=== PATIENT | male | born 1965 | race African-American/Black ===

== ENCOUNTER 2016-11-25 09:27 | Emergency (ER) | payer OTHER, MEDICARE ==
[~2016-11-25] VITALS: Ht 162.6 cm; Wt 52.6 kg
--- NOTE | 2016-11-25 09:54 | PHYS DOC ---
General Chief Complaint: BACK PAIN OR INJURY Stated Complaint: BACK PAIN Time Seen by MD: 09:52 Source: patient Exam Limitations: no limitations Problems: History of Present Illness Initial Comments Patient is a 51-year-old male who comes to the ED complaining of low back pain. Patient states that for the past week he's had worsening low back pain. Pain is across the lumbosacral junction worse with movement and improved with rest. Described as sharp and severe with movement and improved with rest. No leg weakness no saddle anesthesia and no bowel or bladder symptoms. He thinks he may have pulled something although he cannot recall any specific event. Patient has history of osteoporosis however denies any possibility of trauma he denies midline or bony back pain. Timing/Duration: 1 week, getting worse Severity: severe Modifying Factors: worse with movement, improves with rest Associated Symptoms: other Allergies: Coded Allergies: No Known Drug Allergies (Unverified , 11/25/16) Past Medical History Medical History: other (Crohn's, hypertension) Surgical History: other (multiple bowel resections) Social History Smoker: non-smoker Alcohol: none Drugs: other (reported 25 year history of crack cocaine addiction claims 5 years sobriety) Review of Systems Constitutional: denies chills, denies fever Respiratory: denies cough, denies shortness of breath Cardiovascular: denies chest pain, denies palpitations Gastrointestinal: denies nausea, denies vomiting Genitourinary: denies frequency, denies hematuria Musculoskeletal: see HPI Psychiatric/Neurological: see HPI Physical Exam General Appearance: no apparent distress, thin Ear, Nose, Throat: hearing grossly normal, normal ENT inspection Neck: non-tender, supple Respiratory: chest non-tender, no respiratory distress Cardiovascular: normal peripheral pulses, no edema Back: no CVA tenderness, no vertebral tenderness, decreased range of motion, muscle spasm (lumbar paraspinals) Extremities: normal range of motion, no pedal edema (mild posterior left calf TTP no swelling or palpable mass, pt "I pulled a calf muscle") 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 Negative straight leg raise bilaterally) Skin: normal color, warm/dry Departure Time of Disposition: :57 Disposition: 01 HOME, SELF-CARE Diagnosis: low back pain Condition: STABLE Patient Instructions: Low Back Strain with Rehab-SportsMed Additional Instructions: Rest, no strenuous activity. Heating pad to affected area 15-20 minutes 6 times daily followed by gentle stretching. Take care not to fall asleep on the device which would cause a burn. [id number] ibuprofen for baseline discomfort. Prescription: [place] 5 mg quantity 10 take with food for severe pain pain. Follow-up with your doctor in 1-2 days recheck. Return to ED with new or changing symptoms. EVONNE REYNOLDS DO Nov 25, 2016 09:54
[2016-11-25] MEDS ORDERED: HYDR-971 PO (09:56)
[2016-11-25 10:28] VITALS: BP 139/87
[2016-11-25] MEDS ORDERED: fentaNYL PF 100 MCG/2 ML VIAL IM ONE (10:30)
== END 2016-11-25 10:40 | disposition home or self-care (01) ==
LOC: ER 09:27
DX: M54.5 Low back pain (principal); I10 Essential (primary) hypertension; K50.90 Crohn's disease, unspecified, without complications
CPT/HCPCS: 96372; 99283; J3010

== ENCOUNTER 2016-12-02 09:59 | Emergency (ER) | payer MEDICARE, OTHER ==
[~2016-12-02] VITALS: Ht 170.2 cm; Wt 52.6 kg
[~2016-12-02 09:59] MED LIST: HYDR-971 PO
[2016-12-02] MEDS ORDERED: AZAT50TA PO (10:23)
[2016-12-02] MEDS ORDERED: CALC-30 PO (10:25)
[2016-12-02] MEDS ORDERED: RANI150C PO (10:25)
[2016-12-02] MEDS ORDERED: TAMS0.4C2 PO (10:25)
[2016-12-02] MEDS ORDERED: CHOL500021 PO (10:25)
[2016-12-02 10:34] VITALS: BP 153/101
--- NOTE | 2016-12-02 10:36 | PHYS DOC ---
Past History Past Medical History: Hypertension, IBS Past Surgical History: No Surgical History Alcohol Use: None Drug Use: Marijuana Adult General Chief Complaint Chief Complaint: GROIN PAIN HPI HPI Patient is a 51-year-old male with history of Crohn's disease and DVT/PE, has a filter, comes in with a complaint of right groin pain for about 4 days. It has not kept him up at night. He has not noticed a bulge or swelling. No exacerbating or alleviating factors. It just hurts. He had some pain pills on hands that he had been prescribed for back pain, they do help, but he is out of them. He has noted some leg swelling. He previously was on Coumadin for DVT history that he stated it made his blood to sense and they stopped it. He now has a filter. History of Crohn's disease. He gets some type of infusion at [facility] every 4 weeks. He was seen here last week for back pain which is now better. His previous exacerbation of back pain had been in March. He just gets that from time to time. He doesn't believe this groin pain is related to that. Review of Systems Review of Systems Constitutional: Denies fever or chills [] Respiratory: Denies shortness of breath or any pleuritic chest pain or difficulty breathing Cardiovascular: Denies chest pain GI: Denies abdominal pain Musculoskeletal: Denies back pain or joint pain [] Integument: Denies rash or skin lesions [] Allergies Allergies Allergies Coded Allergies Type Severity Reaction Last Updated Verified No Known Drug Allergies 11/25/16 No Physical Exam Physical Exam Constitutional: Well developed, well nourished, somewhat cachectic and appears chronically ill, alert, mentating normally HENT: Normocephalic, atraumatic, bilateral external ears normal, nose normal. [ ] Eyes: conjunctiva normal, no discharge. [] Neck: Normal range of motion, no stridor. [] Cardiovascular:Heart rate regular rhythm, no murmur [] Abdomen: Bowel sounds normal, soft, nondistended, no tenderness, no masses, no pulsatile masses. Healed midline scar. Tenderness to palpation in the right inguinal area. No swelling, no lymphadenopathy palpable, no masses. Hernia not palpable. I had the patient strain and I do not see or feel a hernia. unremarkable. Skin: Warm, dry, no erythema, no rash. [] Extremities: No tenderness, no cyanosis, no clubbing, ROM intact. Mild amount of swelling of the right upper and lower leg with trace edema. No evidence of cellulitis. Mild amount of swelling of the left upper and lower leg as well. Neurologic: Alert and oriented X 3, normal motor function, normal sensory function, no focal deficits noted. [] EKG EKG [] Radiology/Procedures Radiology/Procedures Vascular Doppler of the right lower extremity read by the radiologist. Deep vein thrombosis present, common femoral vein appears chronic, there may be acute on chronic or subacute component. [] Course & Med Decision Making Course & Med Decision Making Pertinent Labs and Imaging studies reviewed. (See chart for details) 51-year-old male with a history of DVT and PE who is not taking anticoagulation therapy, presents with right groin pain for 4 days. On exam I do not see a obvious cause of the pain. With his history we will check an ultrasound of the leg veins. Vascular Doppler is positive for DVT of the right leg, some areas appear chronic , there may be some acute component. I do believe this is probably responsible for the patient's complaint of pain. I discussed the case with Dr. Horton. Since the patient does have a inferior vena cava filter, I believe the patient can be treated as an outpatient with initiation of anticoagulation. She agrees with that. Since he had a bad experience with Coumadin, we will start Xarelto. I discussed this with the patient. He is agreeable. I started him on a 30 day started pack and discussed the importance of getting follow-up before 30 days is finished with a primary care doctor. He was given referrals to local primary care doctors and also he states that his GI doctor at had planned to get him in with a primary care there. Either there is fine. We discussed return precautions especially any signs or symptoms of pulmonary embolism. Patient is stable for discharge. [] Dragon Disclaimer Dragon Disclaimer This chart was dictated in whole or in part using Voice Recognition software in a busy, high-work load, and often noisy Emergency Department environment. It may contain unintended and wholly unrecognized errors or omissions. Departure Departure: Impression: Primary Impression: Deep vein thrombosis Disposition: HOME, SELF-CARE Condition: STABLE Referrals: PCP,NO (PCP) NARCISO CARBONE MD, KATHLEEN R MD Patient Instructions: Deep Vein Thrombosis Additional Instructions: As we discussed, you do have a blood clot in the vein of your right leg. Because you have a filter, we will start you on blood thinning medicine as an outpatient. You will need to follow-up with a doctor who will help manage your anticoagulation. You can call your GI doctor and let them know what is going on and they may want to refer you to a doctor at to help with that. I also gave you names and phone numbers of primary care doctors here at our hospital. Scripts [xarelto starter pack] No Conflict Check for DVT/PE for 30 Days Prov: JUAN LUIS BUENROSTRO MD 12/02/16 JUAN LUIS BUENROSTRO MD Dec 02, 2016 10:36
[2016-12-02] MEDS ORDERED: XARELTO STARTER PACK (11:52)
--- NOTE | 2016-12-02 13:44 | RAD ---
Ultrasound Venous Doppler of the lower extremities Indication: 51-year-old male with right groin pain. History of DVT. Technique: Grayscale, color Doppler and spectral waveform ultrasound images of the right lower extremity veins. Comparison: None Findings: Common femoral vein: Mixed echogenicity filling defect is seen within the CFV. No blood flow is demonstrated on color Doppler images. Superficial femoral vein/deep femoral vein: There is mixed echogenicity filling defect within the veins. Minimal flow is seen within this veins. Proximal Superficial femoral vein: The vein is compressible with eccentric thrombus within proximal femoral vein with minimal flow. Distal superficial femoral vein: The vein is mildly compressible with minimal flow. Popliteal vein: The vein is minimally compressible with minimal flow. Impression: Extensive filling defect within the interrogated right lower extremity veins compatible with DVT. The filling defect within the common femoral vein appears chronic. Rest of the veins are minimally compressible which may suggest subacute DVT. However, acute on chronic DVT not ruled out. Direct comparison with outside imaging is recommended. MTDD
== END 2016-12-02 12:40 | disposition home or self-care (01) ==
LOC: ER 09:59
DX: I82.401 Acute embolism and thrombosis of unspecified deep veins of right lower extremity (principal); K50.90 Crohn's disease, unspecified, without complications; K58.9 Irritable bowel syndrome, unspecified; I10 Essential (primary) hypertension; Z79.01 Long term (current) use of anticoagulants; Z86.718 Personal history of other venous thrombosis and embolism
CPT/HCPCS: 93971; 99284-25

== ENCOUNTER 2017-12-01 12:41 | Inpatient (IN) | payer OTHER ==
[~2017-12-01] VITALS: Ht 170.2 cm; Wt 60.0 kg
[~2017-12-01 12:41] MED LIST changes: +AZAT50TA PO; +CALC-30 PO; +CHOL500021 PO; +RANI150C PO; +TAMS0.4C2 PO; +XARELTO STARTER PACK
--- NOTE | 2017-12-01 13:40 | PHYS DOC ---
Past History Past Medical History: Hypertension, IBS, Other Past Surgical History: No Surgical History Alcohol Use: None Drug Use: Marijuana Adult General Chief Complaint Chief Complaint: LOWER EXT PAIN HPI HPI Patient is a 52-year-old male who presents with complaining of right lower extremity pain and swelling for 2 weeks as a gradual onset of some problem. Patient rated his pain moderate and denies shortness of breath, fever and chills , injury. Patient had history of DVT in right lower extremity but currently doesn't take anticoagulation medication. Review of Systems Review of Systems Constitutional: Denies fever or chills [] Eyes: Denies change in visual acuity, redness, or eye pain [] HENT: Denies nasal congestion or sore throat [] Respiratory: Denies cough or shortness of breath [] Cardiovascular: No additional information not addressed in HPI [] GI: Denies abdominal pain, nausea, vomiting, bloody stools or diarrhea [] : Denies dysuria or hematuria [] Musculoskeletal: Denies back pain or joint pain , reports extremity pain and edema[] Integument: Denies rash or skin lesions [] Neurologic: Denies headache, focal weakness or sensory changes [] Endocrine: Denies polyuria or polydipsia [] All other systems were reviewed and found to be within normal limits, except as documented in this note. Allergies Allergies Allergies Coded Allergies Type Severity Reaction Last Updated Verified No Known Drug Allergies 11/25/16 No Physical Exam Physical Exam Constitutional: Mild distress, non-toxic appearance, ill looking,pale. [] HENT: Normocephalic, atraumatic Eyes: PERRLA, EOMI, conjunctiva normal, no discharge. [] Neck: Normal range of motion, no tenderness, supple, no stridor. [] Cardiovascular:Heart rate regular rhythm, no murmur [] Lungs & Thorax: Bilateral breath sounds clear to auscultation [] Abdomen: Bowel sounds normal, soft, no tenderness, no masses, no pulsatile masses. [] Skin: Warm, dry, no erythema, no rash. [] Back: No tenderness, no CVA tenderness. [] Extremities: Right lower extremity with 2+ edema extending from toes to groin with erythema and tenderness without neurovascular deficit Neurologic: Alert and oriented X 3, normal motor function, normal sensory function, no focal deficits noted. [] Psychologic: Affect normal, judgement normal, mood normal. [] Current Patient Data Vital Signs Vital Signs Date Time Temp Pulse Resp B/P (MAP) Pulse Ox O2 Delivery O2 Flow Rate FiO2 12/01/17 12:50 97.6 66 18 100 Room Air EKG EKG [] Radiology/Procedures Radiology/Procedures [][address] [address] IMAGING REPORT Signed PATIENT: CHRISTIAN LOPEZ ACCOUNT: [id number] : 1965 LOCATION: ER AGE: 52 SEX: M EXAM STATUS: REG ER ORD. PHYSICIAN: PANCHITO SANDOVAL MD REASON: pain for 2 weeks, history of DVT PROCEDURE: VENOUS LOWER EXTREMITY RIGHT EXAM: Right lower extremity venous Doppler sonogram. HISTORY: DVT. TECHNIQUE: Galo scale and color Doppler sonographic evaluation of the right lower extremity veins with spectral waveform analysis was performed. FINDINGS: There is nonocclusive thrombus within the common femoral and superficial femoral veins and occlusive thrombus within the popliteal, proximal posterior tibial and greater saphenous veins. IMPRESSION: Right lower extremity deep and superficial venous thrombosis, described above. These findings were communicated to Dr. Sandoval by the composing room machinist apprentice at 1330 hours on 12/01/2017. Electronically signed by: Irena Mak MD (12/01/2017 1:34 PM) [place] [id number] DICTATED AND SIGNED BY: IRENA MAK MD DATE: 12/01/17 2090 CC: MIGUEL AVERY DO; PANCHITO SANDOVAL MD ~ Course & Med Decision Making Course & Med Decision Making Pertinent Labs and Imaging studies reviewed. (See chart for details) Evaluation of patient in ER showed 52-year-old female patient with history of right lower extremity DVT and complaining of right lower extremity pain and edema. Weeks. Patient had positive superficial and deep vein thromboses of right lower extremity with pancytopenia and hypoalbuminemia. Patient also had blood pressure of 200 at arrival to ER that gradually decrease to 166/64 after Clonidine pain medication. Patient agreed with hospitalization and Dr. Freeman accepted admission at 1335. Dragon Disclaimer Dragon Disclaimer This electronic medical record was generated, in whole or in part, using a voice recognition dictation system. Departure Departure: Impression: Primary Impression: Right leg DVT Additional Impressions: Hypertensive urgency History of Crohn's disease Pancytopenia Renal insufficiency Elevated liver function tests Hypoalbuminemia Hypocalcemia Superficial vein thrombosis Disposition: ADMITTED INPATIENT (at 1335) Admitting Physician: Bradford Freeman Condition: IMPROVED Referrals: MIGUEL AVERY DO (PCP) Problem Qualifiers PANCHITO SANDOVAL MD Dec 01, 2017 13:40
[2017-12-01] MEDS ORDERED: HYDROcodone/APAP 5/325MG 1 TAB TABLET PO ONE (13:45)
[2017-12-01] MEDS ORDERED: cloNIDine HCL 0.1 MG TABLET PO ONE (13:45)
[2017-12-01] MEDS ORDERED: ENOXAPARIN ** NOTE DOSE ** SYRINGE SQ ONE (13:45)
[2017-12-01 14:16] LABS: BASO % 1 % (0-3); EOS % 1 % (0-3); HEMOGLOBIN 8.9 g/dL (13.0-17.5); LYMPH # 1.4 x10^3/uL (1.0-4.8); LYMPH % 38 % (24-48); MEAN CORPUSCULAR HEMOGLOBIN 30 pg (25-35); MEAN CORPUSCULAR HGB CONC 32 g/dL (31-37); MEAN CORPUSCULAR VOLUME 94 fL (79-100); MONO # 0.2 x10^3/uL (0.0-1.1); MONO % 7 % (0-9); NEUT % 54 % (31-73); PLATELET COUNT 190 x10^3/uL (140-400); RED BLOOD COUNT 2.97 x10^6/uL (4.30-5.70); RED CELL DISTRIBUTION WIDTH 16.1 % (11.5-14.5); WHITE BLOOD COUNT 3.7 x10^3/uL (4.0-11.0)
[2017-12-01 14:28] LABS: ALBUMIN 0.8 g/dL (3.4-5.0); ALBUMIN/GLOBULIN RATIO 0.2 (1.0-1.7); ALK PHOS 117 U/L (46-116); ALT (SGPT) 15 U/L (16-63); ANION GAP 11 (6-14); AST (SGOT) 19 U/L (15-37); BLOOD UREA NITROGEN 14 mg/dL (8-26); BUN/CREATININE RATIO 7 (6-20); CALCIUM 6.7 mg/dL (8.5-10.1); CARBON DIOXIDE 21 mmol/L (21-32); CHLORIDE 112 mmol/L (98-107); CREATININE 1.9 mg/dL (0.7-1.3); GFR 45.4; GLUCOSE 94 mg/dL (70-99); POTASSIUM 4.3 mmol/L (3.5-5.1); SODIUM 144 mmol/L (136-145); TOTAL BILIRUBIN < 0.1 mg/dL (0.2-1.0); TOTAL PROTEIN 4.8 g/dL (6.4-8.2)
[2017-12-01 14:38] LABS: AMPHETAMINE/METHAMPHETAMINE NEG (NEG); BARBITURATES NEG (NEG); BENZODIAZEPINES NEG (NEG); CANNABINOIDS NEG (NEG); COCAINE NEG (NEG); METHADONE NEG (NEG); OPIATES NEG (NEG); PHENCYCLIDINE NEG (NEG)
[2017-12-01 14:52] LABS: BACTERIA,URINE 0 /HPF (0-FEW); BILIRUBIN,URINE NEG (NEG); CLARITY,URINE CLEAR; COLOR,URINE YELLOW; GLUCOSE,URINE NEG (NEG); NITRITE,URINE NEG (NEG); SQUAMOUS EPITHELIAL CELL,UR FEW /LPF; UROBILINOGEN,URINE 0.2 mg/dL (0.2 mg/dL)
[2017-12-01 15:16] VITALS: BP 163/103
[2017-12-01] MEDS ORDERED: ESOM20CA PO (17:38)
[2017-12-01] MEDS ORDERED: FERR325T14 PO (17:38)
--- NOTE | 2017-12-01 18:38 | HP ---
ADMIT DATE: 12/01/2017 HISTORY OF PRESENT ILLNESS: The patient is a 52-year-old -[place] male patient who was seen this morning in the emergency room with a complaint of pain, swelling, and tightness in the right lower extremity that started about 2 weeks ago. He also complained of generalized anasarca, at that time, it involved his face and depends on how he sleeps and lay in the bed, present for swelling of his legs. He denied any chest pain, shortness of breath, cough, phlegm or hemoptysis. He apparently was diagnosed with DVT about a year ago and according to him, took his blood thinner for about 2 months and then he developed some kind of a skin rash and stopped taking it. He was evaluated this morning in the emergency room, has had a venous Doppler ultrasound of his right lower extremity, which showed that he has deep and superficial venous thrombosis with nonocclusive thrombus within the common femoral and superficial femoral veins and occlusive thrombus within the popliteal, proximal, posterior tibial, and greater saphenous veins. The patient was started on Lovenox 1 mg per kg subcutaneously and was admitted for further evaluation and treatment. PAST MEDICAL HISTORY: Significant for DVT, Crohn's disease, hypertension, chronic renal disease, and iron deficiency anemia. PAST SURGICAL HISTORY: Significant for colonoscopy, exploratory laparotomy x 3, with partial resection of small bowel. ALLERGIES: He has no known drug allergies. MEDICATIONS: He is currently on the following medications: He is on tamsulosin 0.4 mg at bedtime, hydrocodone/APAP 5/325 one tablet every 4 hours. He is on calcium carbonate with vitamin D3 one tablet once a day, ranitidine 150 mg twice a day, azathioprine 50 mg daily, Xarelto, and cholecalciferol vitamin D3 50,000 units p.o. daily. FAMILY HISTORY: He is adopted and does not know his family history. SOCIAL HISTORY: He is single, never , has no children, does not drink alcohol, does not smoke cigarettes or cigars, or use smokeless cigarettes. He does smoke marijuana to improve his appetite. He is unemployed and currently on disability. REVIEW OF SYSTEMS: The patient denied any blurring of vision, cataract, glaucoma or senile macular degeneration. Denied any earache, tinnitus or sensorineural deafness. Denied any nosebleeds, stuffy nose or postnasal drip. Denied any sore throat, sore tongue, toothache, hoarseness of voice or difficulty swallowing. He did complain of weight loss about 20 pounds unintentional. Denied any nausea, vomiting, diarrhea or constipation. Denied any hematemesis, melena or hematochezia. Denied dysuria, frequency or hematuria. Denied any nocturia. Denied any chest pain, shortness of breath, cough or phlegm. Denied any hemoptysis. Denied any orthopnea or paroxysmal nocturnal dyspnea. Denied any chills, rigors, or fever. Denied any dizziness, lightheadedness, or vertigo. PHYSICAL EXAMINATION: GENERAL: When I examined him this afternoon, he was resting slightly propped up in bed, in no apparent respiratory distress. He was pale, but not jaundiced, cyanosis, thyromegaly. No jugular venous distention, has generalized anasarca with the swelling of the right lower extremity, more so than left. VITAL SIGNS: His heart rate was 68. His blood pressure was 209/92, temperature was 97.6, respiratory rate was 18, and oxygen saturation was 100% on room air. HEAD, EYES, EARS, NOSE, AND THROAT: Normocephalic, atraumatic. NECK: Supple. HEART: Showed normal first and second heart sounds. No gallop, rub or murmur. CHEST: Clear to auscultation. No crepitation or rhonchi. ABDOMEN: Distended, soft, with multiple scars of previous surgery. He has also some stretch chao on the right side of the abdomen that are hypertrophic keloid appearance. There is no tenderness. No guarding or rigidity. No organomegaly. Hernial orifice intact. Bowel sounds normal. NEUROLOGIC: He is awake, alert, responding appropriately. Cranial nerves intact. EXTREMITIES: He moves extremities without difficulty, ambulates without assistance or assistive devices. LABORATORY DATA: On arrival to the Emergency Room showed a serum sodium 144, potassium 4.3, chloride 112, bicarbonate 21, anion gap of 11, BUN 14, creatinine 1.9, estimated GFR was 45 mL per minute. His glucose was 94, calcium was 6.7. Total bilirubin, AST, ALT, alkaline phosphatase were normal. His total protein was 4.8, albumin was 0.8. His prothrombin time was 15, INR 1.5. Urinalysis showed the urine was yellow, clear with a pH of 5.5, specific gravity of 1.015. The urine was negative for protein, glucose, ketones, blood, bilirubin, and leukocyte esterase. There are 1-2 rbc's, 1-4 wbc's, and no bacteria. Urine toxicology screen was essentially negative for opiates, methadone, barbiturates, phencyclidine, amphetamine, methamphetamine, benzodiazepine, cocaine, cannabinoids as well as alcohol. Has had Doppler ultrasound of his right lower extremity showed that he has nonocclusive thrombus within the common femoral and superficial femoral vein and occlusive thrombus within the popliteal, proximal posterior tibial, and greater saphenous vein. SUMMARY: This is a 52-year-old -[place] male patient who came in with a complaint of pain, swelling, and tightness in his right lower extremity. He has previous history of deep venous thrombosis, treated for only 2 months with what seems to be Xarelto. He has multiple medical problems including Crohn's disease, hypertension, and chronic kidney disease. His serum creatinine 1.9. He has also severe protein-calorie malnutrition. His serum albumin is only 0.8 g per dL, raising the suspicion with description of the swelling of his face that he might have nephrotic syndrome, on top of that, his prothrombin time was elevated with 15 and INR 1.5. PLAN: My plan is to continue with the Lovenox and monitor his platelets closely. I will do 24-hour urine collection and hepatitis serology that might explain his abnormal liver and kidney function, and has tendency to form clots if he has indeed nephrotic syndrome. MIKHAIL CARUSO MD DR: BELGICA/sai JOB#: [id number] / [id number]
[2017-12-01 19:41] VITALS: BP 153/90
[2017-12-01 20:30] VITALS: BP 152/83
[2017-12-01] MEDS ORDERED: amLODIPine BESYLATE 5 MG TABLET PO ONE ×2 (20:30→22:30)
[2017-12-01] MEDS: ENOXAPARIN ** NOTE DOSE ** SYRINGE SQ SCH (21:17)
[2017-12-01] MEDS: PANTOPRAZOLE 40 MG TABLET. PO SCH (21:17)
[2017-12-01] MEDS: FERROUS SULFATE 325 MG TABLET. PO SCH (21:18)
[2017-12-01 23:05] VITALS: BP 141/90
[2017-12-02 00:49] VITALS: BP 122/71
[2017-12-02 05:47] VITALS: BP 132/83
[2017-12-02 06:31] LABS: HEMATOCRIT 25.3 % (39.0-53.0); HEMOGLOBIN 8.3 g/dL (13.0-17.5); RED BLOOD COUNT 2.8 x10^6/uL (4.30-5.70); RED CELL DISTRIBUTION WIDTH 15.8 % (11.5-14.5); WHITE BLOOD COUNT 4.3 x10^3/uL (4.0-11.0)
[2017-12-02 06:41] LABS: CALCIUM 6.3 mg/dL (8.5-10.1); CREATININE 1.7 mg/dL (0.7-1.3); GFR 51.7; POTASSIUM 3.9 mmol/L (3.5-5.1)
[2017-12-02] MEDS: FERROUS SULFATE 325 MG TABLET. PO SCH ×2 (08:16→20:45)
[2017-12-02] MEDS: TAMSULOSIN 0.4 MG CAP.ER.24H. PO SCH (08:16)
[2017-12-02] MEDS: amLODIPine BESYLATE 10 MG TABLET PO SCH (08:16)
[2017-12-02] MEDS: PANTOPRAZOLE 40 MG TABLET. PO SCH ×2 (08:16→20:45)
[2017-12-02] MEDS: ENOXAPARIN ** NOTE DOSE ** SYRINGE SQ SCH ×2 (08:17→20:46)
[2017-12-02 10:56] VITALS: BP 126/84
[2017-12-02 16:23] VITALS: BP 138/86
--- NOTE | 2017-12-02 18:12 | PDOC ---
Exam Note: Wes Note: Please also refer to the separate dictated note~for this date of service dictated separately.~Patient seen individually. Discussed the patient with Nursing staff reviewed the chart.~Reviewed interim history and current functioning. Reviewed vital signs,~Labs/ Radiology~and current medications noted below. Continue current treatment with the changes noted in the dictated addendum note Assessment: Vital Signs: Vital Signs Date Time Temp Pulse Resp B/P (MAP) Pulse Ox O2 Delivery O2 Flow Rate FiO2 12/02/17 16:23 98.1 71 18 138/86 (103) 99 Room Air I&O Intake and Output 12/02/17 07:00 Intake Total 100 ml Output Total 975 ml Balance -875 ml Intake Oral 100 ml Output Urine Total 975 ml Labs: Laboratory Tests Test 12/02/17 06:21 White Blood Count 4.3 x10^3/uL (4.0-11.0) Red Blood Count 2.80 x10^6/uL (4.30-5.70) L Hemoglobin 8.3 g/dL (13.0-17.5) L Hematocrit 25.3 % (39.0-53.0) L Mean Corpuscular Volume 91 fL (79-100) Mean Corpuscular Hemoglobin 30 pg (25-35) Mean Corpuscular Hemoglobin Concent 33 g/dL (31-37) Red Cell Distribution Width 15.8 % (11.5-14.5) H Platelet Count 164 x10^3/uL (140-400) Sodium Level 140 mmol/L (136-145) Potassium Level 3.9 mmol/L (3.5-5.1) Chloride Level 113 mmol/L (98-107) H Carbon Dioxide Level 22 mmol/L (21-32) Anion Gap 5 (6-14) L Blood Urea Nitrogen 17 mg/dL (8-26) Creatinine 1.7 mg/dL (0.7-1.3) H Estimated GFR (Cockcroft-Gault) 51.7 Glucose Level 67 mg/dL (70-99) L Calcium Level 6.3 mg/dL (8.5-10.1) L Hepatitis A IgM Antibody Nonreactive (Nonreactive) Hepatitis B Surface Antigen Nonreactive (Nonreactive) Hepatitis B Core IgM Antibody Nonreactive (Nonreactive) Hepatitis C IgG Antibody Nonreactive (Nonreactive) Current Medications: Meds: Current Medications Enoxaparin Sodium (Lovenox 60mg Syringe) 60 mg 1X ONCE SQ Last administered on 12/01/17at 13:55; Start 12/01/17 at 13:45; Stop 12/01/17 at 13:46; Status DC Clonidine HCl (Catapres) 0.1 mg 1X ONCE PO Last administered on 12/01/17at 13: 53; Start 12/01/17 at 13:45; Stop 12/01/17 at 13:46; Status DC Acetaminophen/ Hydrocodone Bitart (Lortab 5/325) 1 tab 1X ONCE PO Last administered on 12/01/17at 13:54; Start 12/01/17 at 13:45; Stop 12/01/17 at 13:46 ; Status DC Enoxaparin Sodium (Lovenox 60mg Syringe) 60 mg Q12HR SQ Last administered on at 08:17; Start 12/01/17 at 21:00 Ferrous Sulfate (Feosol) 325 mg BID PO Last administered on 12/02/17at 08:16; Start 12/01/17 at 21:00 Tamsulosin HCl (Flomax) 0.4 mg DAILY PO Last administered on 12/02/17at 08:16; Start 12/02/17 at 09:00 Pantoprazole Sodium (Protonix) 40 mg BID PO Last administered on 12/02/17at 08: 16; Start 12/01/17 at 21:00 Amlodipine Besylate (Norvasc) 5 mg 1X ONCE PO Last administered on 12/01/17at 21:18; Start 12/01/17 at 20:30; Stop 12/01/17 at 20:32; Status DC Amlodipine Besylate (Norvasc) 5 mg 1X ONCE PO Last administered on 12/01/17at 23:14; Start 12/01/17 at 22:30; Stop 12/01/17 at 22:31; Status DC Amlodipine Besylate (Norvasc) 10 mg DAILY PO Last administered on 12/02/17at 08: 16; Start 12/02/17 at 09:00 Active Scripts Active Reported Ferrous Sulfate 325 Mg Tablet 1 Tab PO BID Nexium Capsule (Esomeprazole Magnesium) 20 Mg Capsule.dr 1 Cap PO BID Tamsulosin Hcl 0.4 Mg Cap.er.24h 1 Cap PO DAILY I have reviewed the current psychotropics carefully including drug interactions. Risk benefit ratio favors no change other than as noted in my dictated progress note. Diagnosis: Problems: (1) Adjustment disorder with anxiety (2) Major depressive disorder, recurrent episode RENAN CERDA MD Dec 02, 2017 18:12
[2017-12-02 19:25] VITALS: BP 137/91
[2017-12-02 23:34] VITALS: BP 116/73
[2017-12-03 05:32] VITALS: BP 136/88
[2017-12-03] MEDS: PANTOPRAZOLE 40 MG TABLET. PO SCH (08:58)
[2017-12-03] MEDS: FERROUS SULFATE 325 MG TABLET. PO SCH (08:58)
[2017-12-03] MEDS: amLODIPine BESYLATE 10 MG TABLET PO SCH (08:58)
[2017-12-03] MEDS: TAMSULOSIN 0.4 MG CAP.ER.24H. PO SCH (08:58)
[2017-12-03] MEDS: ENOXAPARIN ** NOTE DOSE ** SYRINGE SQ SCH (08:59)
[2017-12-03 11:10] VITALS: BP 128/85
[2017-12-03 16:11] VITALS: BP 148/92
[2017-12-03] MEDS ORDERED: APIX5TAB3 PO (16:53)
--- NOTE | 2017-12-03 18:48 | DS ---
DATE OF DISCHARGE: 12/03/2017 HISTORY OF PRESENT ILLNESS: The patient is a 52-year-old -[place] male patient, who was admitted with worsening pain, swelling, and tightness in his right lower extremity. This started about 2 weeks ago. He also complained of generalized anasarca, it involved his face and depends on how he sleeps and lay in the bed. He denied any chest pain, shortness of breath, cough, phlegm or hemoptysis. He was diagnosed with DVT about a year ago and he was on a blood thinner for only 2 months and then he started to develop some kind of scattered rash and stopped taking it. He was evaluated in the Emergency Room and has had a venous Doppler ultrasound of his right lower extremity, which showed that he has deep superficial venous thrombosis with an occlusive thrombus within the common femoral and superficial femoral veins and occlusive thrombus within the popliteal and proximal posterior tibial and greater saphenous veins. He was started on Lovenox 1 mg/kg subcutaneous twice a day and because of his generalized anasarca and severe hypoalbuminemia with a 24-hour urine collection as I suspected that he might have nephrotic syndrome. Unfortunately, the result for the 24-hour urine collection for proteinuria and creatinine clearance. There is a send out and takes 3-4 days and therefore, a decision was made to discharge him home to continue with Eliquis 10 mg twice a day for 7 days and then 5 mg twice a day for a total of 6 months treatment. PHYSICAL EXAMINATION: GENERAL: When I saw him this afternoon, he was resting slightly propped up in bed, in no apparent respiratory distress. He was slightly pale, but no jaundice, cyanosis, or thyromegaly. No jugular venous distension. No limb edema. He has generalized anasarca. VITAL SIGNS: His heart rate was 77, blood pressure 148/92, temperature was 97.8, respiratory rate was 18 and oxygen saturation was 99%. HEAD, EYES, EARS, NOSE AND THROAT: Normocephalic, atraumatic. NECK: Supple. HEART: Showed normal first and second heart sounds with no gallop, rub or murmur. CHEST: Clear to auscultation. No crepitation or rhonchi. ABDOMEN: Distended, soft, nontender. No guarding or rigidity. No organomegaly. Hernial orifice intact. Bowel sounds normal. NEUROLOGIC: He was awake, alert, responding appropriately. Cranial nerves intact. He moves extremities without difficulty, ambulates without assistance or assistive devices. His intake over the last 24 hours was 1400, output was 1375. LABORATORY DATA: His lab work this morning showed a white cell count of 4300, hemoglobin 8.3, hematocrit 25, MCV 91, and platelet count of 164,000. His chemistry showed a serum sodium 140, potassium 3.9, chloride 113, bicarbonate 22, anion gap of 5, BUN 17, creatinine 1.7, estimated GFR was 52 mL per minute. His glucose was 67, calcium was 6.3. Prothrombin time was 15 and INR 1.5. His hepatitis A IgM antibody was nonreactive. Hepatitis B surface antigen was nonreactive, hepatitis B core IgM antibody nonreactive and hepatitis C IgG antibody nonreactive. His toxicology screen was negative. Urinalysis was negative. DISCHARGE MEDICATIONS: The patient was discharged home to continue on apixaban 10 mg twice a day for 7 days and then apixaban 5 mg twice a day for 30 days for a total of 6 months; Nexium 20 mg twice a day; ferrous sulfate 325 mg twice a day; and tamsulosin 0.4 mg once a day. FINAL DISCHARGE DIAGNOSES: 1. Right lower extremity deep venous thrombosis. 2. Benign prostatic hypertrophy. 3. Crohn's disease. 4. Hypertension. 5. Chronic renal disease. 6. Iron deficiency anemia. MIKHAIL CARUSO MD DR: BELGICA/sai JOB#: [id number] / [id number]
[2017-12-03 22:14] LABS: TOTAL SERUM CREATININE 1.81 mg/dL (0.76-1.27); TOTAL URINE CREATININE 45.4 mg/dL (Not Estab.); UR PROTEIN 8.8 mg/dL (Not Estab.)
--- NOTE | 2017-12-04 00:17 | CONS ---
DATE OF CONSULTATION: 12/02/2017 PSYCHIATRIC CONSULTATION This late entry 12/02/2017 covers elements not covered in my initial note 12/02/2017. IDENTIFYING DATA: The patient is a 52-year-old Afro-[place]ym[place] male seen in bed 123, [facility] for a psychiatric consult requested by Dr. Freeman on account of depression/being extremely withdrawn. The patient was seen individually evening of 12/02/2017, discussed with nursing staff, reviewed the chart. CHIEF COMPLAINT: "No, I am not depressed." The patient responded after I introduced myself, explained to him the reason for the consult and just as he was doing this, he pulled the covers back over him, which is what the nursing staff indicated he done most of the day. HISTORY OF PRESENT ILLNESS: The patient was admitted via the Emergency Room with complaints of pain, swelling, tightness, right lower extremity starting about 2 weeks ago. He had apparently been diagnosed with DVT about a year ago and then took blood thinners for about 2 months; developed a skin rash, stopped it. He was again found to have a DVT of his right lower extremity; started on Lovenox, admitted. On the unit, he has been noted to be withdrawn and most of the day on 12/02/2017, he was lying in bed, head covered with his blanket. He, however, denies being depressed. Denies psychotic symptoms, suicidal or homicidal ideation and states he has never been evaluated or treated for depression in the past because "I have no problem with this." No alcohol or drug abuse history is noted and cognitively, he is reasonably intact. PAST PSYCHIATRIC HISTORY: The patient denies any history. DRUG ALLERGIES: Negative. CURRENT PSYCHOTROPICS: He is not on any psychotropics at this time, but he is on the Lovenox along with Flomax, hydrocodone/APAP, calcium carbonate with vitamin D3, ranitidine, azathioprine, Xarelto. FAMILY HISTORY: Noncontributory. SOCIAL HISTORY: The patient is single, never , has no children. No alcohol or drug abuse history. He states he lives by himself. He is on disability, but apparently per nursing report, he may be living with his mother. MENTAL STATUS EXAM: The patient was seen individually. He did remove his covers to interact with me reluctantly. Speech is coherent. Thought processes are goal directed. He is reasonably oriented. Memory is intact. No psychotic symptoms, suicidal or homicidal ideation. He denies being depressed, but affect is somewhat withdrawn. Intellect Average. Insight somewhat limited. Judgment intact to standard questioning. IMPRESSION: Adjustment disorder with depressed mood versus major depressive disorder, but the patient denies being depressed subjectively. Rest as above. PLAN: From a psychiatric standpoint, the patient is quite clear he does not want any psychotropic medications. I have suggested he follow up outpatient with psychiatric care if mood symptoms persist, but I am not sure to what extent he would be willing to do this. I would be happy to follow up with him on 12/03/2017 and make further recommendations if he is in agreement. Dr. Freeman, thank you for the opportunity to participate in your patient's care. We will follow with you. MAN Bogdan CERDA MD DR: DAYAMI/sai JOB#: [id number] / [id number]
== END 2017-12-03 17:15 | disposition home or self-care (01) | DRG 299 ==
LOC: ER 12:41 → 1 SOUTH 14:13
PROVIDERS: ADMIT Internal Medicine; ATTEND Internal Medicine
DX: I82.441 Acute embolism and thrombosis of right tibial vein (principal); E43 Unspecified severe protein-calorie malnutrition; K50.90 Crohn's disease, unspecified, without complications; D61.818 Other pancytopenia; F33.9 Major depressive disorder, recurrent, unspecified; I82.431 Acute embolism and thrombosis of right popliteal vein; I82.811 Embolism and thrombosis of superficial veins of right lower extremity; N40.0 Benign prostatic hyperplasia without lower urinary tract symptoms; I12.9 Hypertensive chronic kidney disease with stage 1 through stage 4 chronic kidney disease, or unspecified chronic kidney disease; N18.9 Chronic kidney disease, unspecified; D50.9 Iron deficiency anemia, unspecified; I16.0 Hypertensive urgency; E88.09 Other disorders of plasma-protein metabolism, not elsewhere classified; E83.51 Hypocalcemia; Z79.899 Other long term (current) drug therapy; F12.90 Cannabis use, unspecified, uncomplicated; F43.22 Adjustment disorder with anxiety; Z79.01 Long term (current) use of anticoagulants; Z86.718 Personal history of other venous thrombosis and embolism; Z68.20 Body mass index [BMI] 20.0-20.9, adult
CPT/HCPCS: 36415; 80048; 80053; 80307; 81001; 82575; 84156; 85025; 85027; 85610; 86705; 86709; 86803; 87340; 93971; 96372; J1650; 99285-25; G0479

== ENCOUNTER 2018-02-10 16:23 | Emergency (ER) | payer OTHER ==
[~2018-02-10] VITALS: Ht 170.2 cm; Wt 59.9 kg
[~2018-02-10 16:23] MED LIST changes: +APIX5TAB3 PO; +ESOM20CA PO; +FERR325T14 PO
[2018-02-10] MEDS ORDERED: IV NORMAL SALINE 1,000ML 1,000 ML IV SCH (16:30)
--- NOTE | 2018-02-10 16:54 | EKG ---
[address] [address] Test Date: 2018-02-10 Test Time: 16:41:00 Pat Name: CHRISTIAN LOPEZ Department: Room: Gender: M Psych Social Worker: : 1965 Requested By: PANCHITO SANDOVAL Order Number: [id number] Reading MD: Cipriano Santana Measurements Intervals [place] Rate: 99 P: 0 IN: 136 QRS: -12 QRSD: 76 T: 70 QT: 350 QTc: 455 Interpretive Statements SINUS RHYTHM LEFTWARD AXIS LOW LIMB LEAD VOLTAGE T ABNORMALITY IN ANTEROLATERAL LEADS ABNORMAL ECG Electronically Signed On 02-13-2018 10:26:30 CDT by Cipriano Santana
[2018-02-10 17:12] LABS: BASO % 1 % (0-3); EOS % 0 % (0-3); HEMATOCRIT 24.6 % (39.0-53.0); HEMOGLOBIN 7.5 g/dL (13.0-17.5); LYMPH # 1.8 x10^3/uL (1.0-4.8); LYMPH % 48 % (24-48); MEAN CORPUSCULAR HEMOGLOBIN 27 pg (25-35); MEAN CORPUSCULAR HGB CONC 31 g/dL (31-37); MEAN CORPUSCULAR VOLUME 89 fL (79-100); MONO # 0.3 x10^3/uL (0.0-1.1); MONO % 7 % (0-9); NEUT # 1.6 x10^3uL (1.8-7.7); NEUT % 44 % (31-73); PLATELET COUNT 164 x10^3/uL (140-400); RED BLOOD COUNT 2.76 x10^6/uL (4.30-5.70); RED CELL DISTRIBUTION WIDTH 16.5 % (11.5-14.5); WHITE BLOOD COUNT 3.7 x10^3/uL (4.0-11.0)
--- NOTE | 2018-02-10 17:20 | RAD ---
CT HEAD WO CONTRAST Indication: GENERALIZED WEAKNESS Exposure: One or more of the following individualized dose reduction techniques were utilized for this examination: 1. Automated exposure control 2. Adjustment of the mA and/or kV according to patient size 3. Use of iterative reconstruction technique. Comparison: None are available. Contrast: None FINDINGS: Posterior fossa is unremarkable. No evidence of acute intracranial hemorrhage or abnormal extra-axial fluid collection. No evidence of mass effect or midline shift. Ventricles are symmetric in size and configuration. Galo-white matter distinction is intact. Visualized orbits are unremarkable. Visualized paranasal sinuses and mastoids are clear. No acute calvarial abnormality. Impression:Negative for acute intracranial hemorrhage or mass effect. Consider follow-up with outpatient MR brain if symptoms persist. Electronically signed by: Anmol Agosto MD (02/10/2018 5:17 PM) [facility]
--- NOTE | 2018-02-10 17:25 | RAD ---
Examination: PORTABLE CHEST 1V History: GENERALIZED WEAKNESS. DID 2 EXPOSURES TO TRY AND GET A BETTER INSPIRATION Comparison/Correlation: None Findings: Portable upright frontal views of the chest were provided. Limited pulmonary inflation is noted despite repeat imaging. Subtle opacity at the left lung base which may represent underlying atelectasis is present. Other infiltrates cannot exclude. Subtle fullness of the left hilar region may be artifactual and related to limited pulmonary inflation. Right lung field is normal. No pneumothorax. Impression: Mild left basilar opacification which appears to represent underlying atelectasis although associated infiltrates are not excluded. Interval follow-up two-view chest x-ray exam to assess resolution recommended. Electronically signed by: Haim Vee MD (02/10/2018 5:21 PM) [facility]
[2018-02-10 17:28] LABS: ALBUMIN < 0.6 g/dL (3.4-5.0); ALBUMIN/GLOBULIN RATIO 0.2 (1.0-1.7); ALK PHOS 129 U/L (46-116); ALT (SGPT) 23 U/L (16-63); ANION GAP 8 (6-14); AST (SGOT) 21 U/L (15-37); BLOOD UREA NITROGEN 22 mg/dL (8-26); BUN/CREATININE RATIO 11 (6-20); CALCIUM 6.3 mg/dL (8.5-10.1); CARBON DIOXIDE 17 mmol/L (21-32); CHLORIDE 109 mmol/L (98-107); GFR 42.8; GLUCOSE 158 mg/dL (70-99); LIPASE 51 U/L (73-393); MAGNESIUM 1.6 mg/dL (1.8-2.4); POTASSIUM 4.8 mmol/L (3.5-5.1); SODIUM 134 mmol/L (136-145); TOTAL BILIRUBIN < 0.1 mg/dL (0.2-1.0); TOTAL PROTEIN 4.2 g/dL (6.4-8.2)
[2018-02-10] MEDS ORDERED: MAGNESIUM SULFATE 2GM 50 ML IV ONE (17:45)
[2018-02-10] MEDS ORDERED: IV NORMAL SALINE 50ML 50 ML ONE (18:01)
[2018-02-10] MEDS ORDERED: cefTRIAXone SODIUM 1 GM VIAL IV ONE (18:01)
--- NOTE | 2018-02-10 18:04 | PHYS DOC ---
Past History Past Medical History: Hypertension, IBS, Other Additional Past Medical Histor: Crohn's disease Past Surgical History: No Surgical History Alcohol Use: None Drug Use: Marijuana Adult General Chief Complaint Chief Complaint: WEAKNESS/GENERALIZED HPI HPI Patient is a 52 year old male who brought in by EMS because of generalized weakness. Patient states he has history of Crohn's/IBS and bilateral lower extremity DVT on blood thinner medication and usually goes to [facility] for his care. Patient states for the last one month he was not able to eat and had generalized weakness. Patient denies vomiting, diarrhea, urinary symptom, fever and chills. Patient had bowel movement yesterday. Review of Systems Review of Systems Constitutional: Denies fever or chills [] Eyes: Denies change in visual acuity, redness, or eye pain [] HENT: Denies nasal congestion or sore throat [] Respiratory: Denies cough or shortness of breath [] Cardiovascular: No additional information not addressed in HPI [] GI: Denies abdominal pain, nausea, vomiting, bloody stools or diarrhea [] : Denies dysuria or hematuria [] Musculoskeletal: Denies back pain or joint pain [] Integument: Denies rash or skin lesions [] Neurologic: Denies headache, focal weakness or sensory changes [] Endocrine: Denies polyuria or polydipsia [] All other systems were reviewed and found to be within normal limits, except as documented in this note. Current Medications Current Medications Current Medications Medications (Trade) Dose Ordered Sig/[place] Start Time Stop Time Status Last Admin Dose Admin Ceftriaxone Sodium 1 gm/ Sodium Chloride 50 ml @ 100 mls/hr 1X ONCE 02/10/18 17:45 02/10/18 18:14 Magnesium Sulfate 50 ml @ 25 mls/hr 1X ONCE 02/10/18 17:45 02/10/18 19:44 Sodium Chloride 1,000 ml @ 1,000 mls/hr Q1H 02/10/18 16:30 02/10/18 17:29 DC Allergies Allergies Allergies Coded Allergies Type Severity Reaction Last Updated Verified No Known Drug Allergies 11/25/16 No Physical Exam Physical Exam Constitutional: Generalized weakness with malnutrition and pallor, non-toxic appearance. [] HENT: Normocephalic, atraumatic Eyes: PERRLA, EOMI, conjunctiva normal, no discharge. [] Neck: Normal range of motion, no tenderness, supple, no stridor. [] Cardiovascular:Heart rate regular rhythm, no murmur [] Lungs & Thorax: Bilateral breath sounds clear to auscultation [] Abdomen: Bowel sounds normal, abdomen mildly distended with fluid soft, no tenderness, no masses, no pulsatile masses. [] Skin: Warm, dry, bilateral lower extremity erythema and edema Back: No tenderness, no CVA tenderness. [] Extremities: No tenderness, no cyanosis, no clubbing, ROM intact, bilateral lower extremity trace edema and erythema without sign of cellulitis. Neurologic: Alert and oriented X 3, normal motor function, normal sensory function, no focal deficits noted. [] Psychologic: Affect normal, judgement normal, mood normal. [] Current Patient Data Vital Signs Vital Signs Date Time Temp Pulse Resp B/P (MAP) Pulse Ox O2 Delivery O2 Flow Rate FiO2 02/10/18 16:28 20 100 Room Air Lab Results Laboratory Tests Test 02/10/18 15:52 02/10/18 16:52 02/10/18 16:58 White Blood Count 3.7 x10^3/uL (4.0-11.0) L Red Blood Count 2.76 x10^6/uL (4.30-5.70) L Hemoglobin 7.5 g/dL (13.0-17.5) L Hematocrit 24.6 % (39.0-53.0) L Mean Corpuscular Volume 89 fL (79-100) Mean Corpuscular Hemoglobin 27 pg (25-35) Mean Corpuscular Hemoglobin Concent 31 g/dL (31-37) Red Cell Distribution Width 16.5 % (11.5-14.5) H Platelet Count 164 x10^3/uL (140-400) Neutrophils (%) (Auto) 44 % (31-73) Lymphocytes (%) (Auto) 48 % (24-48) Monocytes (%) (Auto) 7 % (0-9) Eosinophils (%) (Auto) 0 % (0-3) Basophils (%) (Auto) 1 % (0-3) Neutrophils # (Auto) 1.6 x10^3uL (1.8-7.7) L Lymphocytes # (Auto) 1.8 x10^3/uL (1.0-4.8) Monocytes # (Auto) 0.3 x10^3/uL (0.0-1.1) Eosinophils # (Auto) 0.0 x10^3/uL (0.0-0.7) Basophils # (Auto) 0.0 x10^3/uL (0.0-0.2) Sodium Level 134 mmol/L (136-145) L Potassium Level 4.8 mmol/L (3.5-5.1) Chloride Level 109 mmol/L (98-107) H Carbon Dioxide Level 17 mmol/L (21-32) L Anion Gap 8 (6-14) Blood Urea Nitrogen 22 mg/dL (8-26) Creatinine 2.0 mg/dL (0.7-1.3) H Estimated GFR (Cockcroft-Gault) 42.8 BUN/Creatinine Ratio 11 (6-20) Glucose Level 158 mg/dL (70-99) H Lactic Acid Level 3.1 mmol/L (0.4-2.0) H Calcium Level 6.3 mg/dL (8.5-10.1) L Magnesium Level 1.6 mg/dL (1.8-2.4) L Total Bilirubin < 0.1 mg/dL (0.2-1.0) L Aspartate Amino Transferase (AST) 21 U/L (15-37) Alanine Aminotransferase (ALT) 23 U/L (16-63) Alkaline Phosphatase 129 U/L (46-116) H Creatine Kinase 39 U/L (39-308) Troponin I Quantitative < 0.017 ng/mL (0-0.055) [id number]-Type Natriuretic Peptide 975 pg/mL (0-124) H Total Protein 4.2 g/dL (6.4-8.2) L Albumin < 0.6 g/dL (3.4-5.0) L Albumin/Globulin Ratio 0.2 (1.0-1.7) L Lipase 51 U/L (73-393) L Prothrombin Time 19.8 SEC (9.4-11.4) H Prothrombin Time INR 2.1 (0.9-1.1) H PTT 35 SEC (23-33) H D-Dimer (Beatriz) 1.14 mg/L (0.00-0.50) H Ethyl Alcohol Level < 10 mg/dL (0-10) EKG EKG EKG interpreted by me. EKG at 1641 showed normal sinus rhythm at rate of 99, left laura axis deviation, low voltage QRS, poor R-wave progress in anterior leads, no acute ST and T-wave abnormalities. Radiology/Procedures Radiology/Procedures My interpretation of chest x-ray shows large pleural effusion and atelectasis on the left. No obvious pneumothorax. Does have cardiomegaly. Does have some increased cephalization consistent with CHF. CT of chest shows large left pleural effusion and small right pleural effusion. Does have atelectasis. Stomach is distended. No findings consistent with marked bowel obstruction. There is large amount of stool in colon. There are findings consistent with enteritis or ileitis. No free air. See formal report when available. CT of head shows no findings of acute bleed, shift, mass, fracture. Does have atrophy and white matter disease changes. See formal report when available Course & Med Decision Making Course & Med Decision Making Pertinent Labs and Imaging are pending. Patient care transferred to Dr. Bravo at [address] Sandoval chart for details. Impression: 1. Generalized Weakness 2. Hypo magnesium 1.6 3. Abdomen pain 4. History of Crohn's 5. CHF 6. Large left pleural effusion 7. Anemia= 7.5 8. Malnutrition- Alb. 0.6 9. Elevated d-dimer 1.4 10. DM Glu 158 Pt. and family requesting transfer to . Discussed presentation, testing and radiology findings with Dr. Mccord at . Dr. Mccord at - accepting pt. in transfer- 2014 hrs. Audi Disclaimer Audi Disclaimer This electronic medical record was generated, in whole or in part, using a voice recognition dictation system. Departure Departure: Impression: Primary Impression: Generalized weakness Additional Impressions: Anemia Elevated lactic acid level Referrals: MIGUEL AVERY DO (PCP) Problem Qualifiers PANCHITO SANDOVAL MD Feb 10, 2018 18:04 PHILIPPE BRAVO MD Feb 10, 2018 20:14
[2018-02-10 18:37] LABS: BGAS PH 7.31 (7.35-7.46)
--- NOTE | 2018-02-10 18:37 | RAD ---
Examination: CT CHEST ABDOMEN PELVIS WO History: ABNORMAL CXR. SHORTNESS OF BREATH WITH ABDOMINAL PAIN. NO CONTRAST PER ORDER. POOR IV ACSESS AND ELEVATED CREATINE. Comparison/Correlation: 01/14/2018 portable chest x-ray exam Findings: Axial images of the chest, abdomen, and pelvis were obtained without contrast. Sagittal and coronal reformatted images were provided. Lack of contrast may limit detection of mass lesions and inflammatory processes. Small right pleural effusion is present. Moderate to large left pleural effusion is present with adjacent left lower lobe atelectasis. Minimal lingular atelectasis is present. No enlarged mediastinal lymph nodes are identified. No definite enlarged hilar lymph nodes although evaluation in the left hilar region may be limited due to adjacent atelectasis. Mild ectasia of the ascending aorta with diameter 4 cm is present. Moderate amount of ascites is noted especially in the perihepatic region. Stomach is distended with debris and fluid. Unenhanced spleen is unremarkable. Adrenal glands are unremarkable. Pancreas is unremarkable. Suture material at the right mid abdomen is identified adjacent to the ascending colon. Inferior vena cava filter is present. Kidneys are atrophic. Gallbladder is not definitely delineated. Correlate with surgical history. Large quantity of stool is present within the colon. Circumferential thickening of the duodenal wall and contiguous jejunum is evident. Urinary bladder is unremarkable. Anasarca is evident. No extraluminal gas. Bony structures are unremarkable for age. Impression: Moderate to large left pleural effusion. Small right pleural effusion. Left lower lung field partial atelectasis. Ascites and anasarca. Circumferential wall thickening and distention of the duodenum and possible jejunum noted. Stomach is mildly to moderately distended as well. No transition point to suggest obstruction. Findings may relate to enteritis and ileus. Findings may in part relate to underlying anasarca. Electronically signed by: Haim Vee MD (02/10/2018 6:34 PM) [facility]
[2018-02-10 19:13] LABS: AMORPHOUS SEDIMENT,UR PRESENT /HPF; BACTERIA,URINE FEW /HPF (0-FEW); BILIRUBIN,URINE NEG (NEG); CLARITY,URINE HAZY; COLOR,URINE YELLOW; GLUCOSE,URINE NEG (NEG); NITRITE,URINE NEG (NEG); RBC,URINE RARE /HPF (0-2); SQUAMOUS EPITHELIAL CELL,UR FEW /LPF; UROBILINOGEN,URINE 0.2 mg/dL (0.2 mg/dL)
[2018-02-10 19:16] LABS: BARBITURATES NEG (NEG); BENZODIAZEPINES NEG (NEG); CANNABINOIDS NEG (NEG); COCAINE NEG (NEG); METHADONE NEG (NEG); OPIATES NEG (NEG); PHENCYCLIDINE NEG (NEG)
[2018-02-10 19:17] LABS: AMPHETAMINE/METHAMPHETAMINE NEG (NEG)
[2018-02-10 20:13] VITALS: BP 121/78
== END 2018-02-10 21:00 | disposition short-term general hospital (02) ==
LOC: ER 16:23
DX: R53.1 Weakness (principal); D64.9 Anemia, unspecified; R74.0 Nonspecific elevation of levels of transaminase and lactic acid dehydrogenase [LDH]; E83.42 Hypomagnesemia; I11.0 Hypertensive heart disease with heart failure; I50.9 Heart failure, unspecified; J90 Pleural effusion, not elsewhere classified; E46 Unspecified protein-calorie malnutrition; R79.1 Abnormal coagulation profile; E11.9 Type 2 diabetes mellitus without complications; K50.90 Crohn's disease, unspecified, without complications; Z86.718 Personal history of other venous thrombosis and embolism; Z68.20 Body mass index [BMI] 20.0-20.9, adult
CPT/HCPCS: 36415; 36600; 70450; 71045; 71250; 74176; 80053; 80307; 81001; 82140; 82550; 82803; 83605; 83690; 83735; 83880; 84443; 84484; 85025; 85379; 85610; 85730; 86850; 86900; 86901; 87040; 87086; 93005; 96365; 96368; 99285; G0480; J0696; J3475; G0479; J7030

== ENCOUNTER 2018-03-14 09:02 | Emergency (ER) | payer OTHER, MEDICAID ==
[~2018-03-14] VITALS: Ht 170.2 cm; Wt 52.3 kg
[2018-03-14 09:02] VITALS: BP 157/72
[~2018-03-14 09:02] MED LIST changes: +HYDR-3165 PO; -HYDR-971 PO
[2018-03-14] MEDS ORDERED: IV NORMAL SALINE 1,000ML 1,000 ML IV SCH (09:07)
[2018-03-14] MEDS ORDERED: IOHEXOL 300 MG/ML 75 ML VIAL. IV ONE (09:30)
[2018-03-14] MEDS ORDERED: IOHEXOL 240 MG/ML 50ML VIAL. PO ONE (09:30)
[2018-03-14] MEDS ORDERED: ONDANSETRON PF 4 MG/2 ML VIAL. IV ONE (09:40)
[2018-03-14 09:53] LABS: ALBUMIN 2.2 g/dL (3.4-5.0); ALBUMIN/GLOBULIN RATIO 0.6 (1.0-1.7); CALCIUM 7.3 mg/dL (8.5-10.1); CREATININE 1.9 mg/dL (0.7-1.3); GFR 45.4; MAGNESIUM 1.8 mg/dL (1.8-2.4); POTASSIUM 4.1 mmol/L (3.5-5.1); TOTAL BILIRUBIN 0.2 mg/dL (0.2-1.0); TOTAL PROTEIN 5.9 g/dL (6.4-8.2)
[2018-03-14 09:57] LABS: BASO # 0.1 x10^3/uL (0.0-0.2); BASO % 1 % (0-3); EOS # 0.1 x10^3/uL (0.0-0.7); EOS % 1 % (0-3); HEMATOCRIT 24.1 % (39.0-53.0); HEMOGLOBIN 7.8 g/dL (13.0-17.5); LYMPH # 2.7 x10^3/uL (1.0-4.8); LYMPH % 35 % (24-48); MEAN CORPUSCULAR HEMOGLOBIN 31 pg (25-35); MEAN CORPUSCULAR HGB CONC 32 g/dL (31-37); MEAN CORPUSCULAR VOLUME 95 fL (79-100); MONO # 0.3 x10^3/uL (0.0-1.1); MONO % 3 % (0-9); NEUT # 4.6 x10^3uL (1.8-7.7); NEUT % 60 % (31-73); PLATELET COUNT 332 x10^3/uL (140-400); RED BLOOD COUNT 2.55 x10^6/uL (4.30-5.70); RED CELL DISTRIBUTION WIDTH 23.9 % (11.5-14.5); WHITE BLOOD COUNT 7.7 x10^3/uL (4.0-11.0)
[2018-03-14 10:01] LABS: FECAL OB PT POSITIVE (NEG)
--- NOTE | 2018-03-14 10:15 | PHYS DOC ---
Past History Past Medical History: Anemia, DVT, Hypertension, IBS, Prostatitis, Renal Disease, Other Additional Past Medical Histor: Crohn's disease Past Surgical History: Other Alcohol Use: None Drug Use: Marijuana Adult General Chief Complaint Chief Complaint: ABDOMINAL PAIN HPI HPI Patient is a 52 year old male with history of chronic anemia and Crohn's disease and DVT on Eliquis who brought in by EMS because of left lower quadrant abdominal pain. Patient states he did not have any bowel movement for the last 3 days and complaining of sudden onset of severe left lower quadrant pain since 0700 this morning as a constant sharp pain with radiation to his back. Patient complaining of multiple episodes of vomiting small amounts of clear liquid. Patient denies fever and chills, urinary symptom, anorexia, passing flatus, taking laxative medication. Patient states he had the same abdominal pain several years ago that resolved spontaneously. Review of Systems Review of Systems Constitutional: Denies fever or chills [] Eyes: Denies change in visual acuity, redness, or eye pain [] HENT: Denies nasal congestion or sore throat [] Respiratory: Denies cough or shortness of breath [] Cardiovascular: No additional information not addressed in HPI [] GI: Reports abdominal pain, nausea, vomiting, constipation, denies bloody stools or diarrhea [] : Denies dysuria or hematuria [] Musculoskeletal: Denies back pain or joint pain [] Integument: Denies rash or skin lesions [] Neurologic: Denies headache, focal weakness or sensory changes [] Endocrine: Denies polyuria or polydipsia [] All other systems were reviewed and found to be within normal limits, except as documented in this note. Current Medications Current Medications Current Medications Medications (Trade) Dose Ordered Sig/[place] Start Time Stop Time Status Last Admin Dose Admin Ceftriaxone Sodium 1 gm/ Sodium Chloride 50 ml @ 100 mls/hr 1X ONCE 03/14/18 10:15 03/14/18 10:44 UNV Dextrose 12.5 gm 1X ONCE 03/14/18 10:15 03/14/18 10:16 UNV Fentanyl Citrate (Fentanyl 2ml Vial) 50 mcg 1X ONCE 03/14/18 09:40 03/14/18 09:41 DC 03/14/18 09:27 50 MCG Iohexol (Omnipaque 240 Mg/ml) 30 ml 1X ONCE 03/14/18 09:30 03/14/18 09:31 DC Iohexol (Omnipaque 300 Mg/ml) 75 ml 1X ONCE 03/14/18 09:30 03/14/18 09:31 DC Ondansetron HCl (Zofran) 4 mg 1X ONCE 03/14/18 09:40 03/14/18 09:41 DC 03/14/18 09:27 4 MG Sodium Chloride 1,000 ml @ 1,000 mls/hr Q1H 03/14/18 09:07 03/14/18 10:06 DC 03/14/18 09:27 1,000 MLS/HR Allergies Allergies Allergies Coded Allergies Type Severity Reaction Last Updated Verified No Known Drug Allergies 11/25/16 No Physical Exam Physical Exam Constitutional: Moderate distress, non-toxic appearance, afebrile, screaming of pain and keeping position, pale. [] HENT: Normocephalic, atraumatic, oropharynx dry, no oral exudates, nose normal. [] Eyes: PERRLA, EOMI, conjunctiva normal, no discharge [] Neck: Normal range of motion, no tenderness, supple, no stridor. [] Cardiovascular:Heart rate regular rhythm, no murmur [] Lungs & Thorax: Bilateral breath sounds clear to auscultation [] Abdomen: Bowel sounds hyperactive, mild distention of abdomen with gas, generalized guarding, tenderness in left lower quadrant, no masses, no pulsatile masses, large midline abdominal scar, rectal exam with present of [facility] showed multiple external hemorrhoids and tags, no stool in rectum, mild pink color mucus related to painful rectal exam [] Skin: Warm, dry, no erythema, no rash. [] Back: No tenderness, no CVA tenderness. [] Extremities: No tenderness, no cyanosis, no clubbing, ROM intact, no edema. [] Neurologic: Alert and oriented X 3, normal motor function, normal sensory function, no focal deficits noted. [] Psychologic: Affect anxious, mood normal. [] Current Patient Data Vital Signs Vital Signs Date Time Temp Pulse Resp B/P (MAP) Pulse Ox O2 Delivery O2 Flow Rate FiO2 03/14/18 09:02 97.4 74 20 100 Room Air Lab Results Laboratory Tests Test 03/14/18 09:15 White Blood Count 7.7 x10^3/uL (4.0-11.0) Red Blood Count 2.55 x10^6/uL (4.30-5.70) L Hemoglobin 7.8 g/dL (13.0-17.5) L Hematocrit 24.1 % (39.0-53.0) L Mean Corpuscular Volume 95 fL (79-100) Mean Corpuscular Hemoglobin 31 pg (25-35) Mean Corpuscular Hemoglobin Concent 32 g/dL (31-37) Red Cell Distribution Width 23.9 % (11.5-14.5) H Platelet Count 332 x10^3/uL (140-400) # Neutrophils (%) (Auto) 60 % (31-73) Lymphocytes (%) (Auto) 35 % (24-48) Monocytes (%) (Auto) 3 % (0-9) Eosinophils (%) (Auto) 1 % (0-3) Basophils (%) (Auto) 1 % (0-3) Neutrophils # (Auto) 4.6 x10^3uL (1.8-7.7) Lymphocytes # (Auto) 2.7 x10^3/uL (1.0-4.8) Monocytes # (Auto) 0.3 x10^3/uL (0.0-1.1) Eosinophils # (Auto) 0.1 x10^3/uL (0.0-0.7) Basophils # (Auto) 0.1 x10^3/uL (0.0-0.2) Platelet Estimate Pending Stool Occult Blood Positive (NEG) Sodium Level 135 mmol/L (136-145) L Potassium Level 4.1 mmol/L (3.5-5.1) Chloride Level 103 mmol/L (98-107) Carbon Dioxide Level 20 mmol/L (21-32) L Anion Gap 12 (6-14) Blood Urea Nitrogen 45 mg/dL (8-26) H Creatinine 1.9 mg/dL (0.7-1.3) H Estimated GFR (Cockcroft-Gault) 45.4 BUN/Creatinine Ratio 24 (6-20) H Glucose Level 66 mg/dL (70-99) L Lactic Acid Level 2.5 mmol/L (0.4-2.0) H Calcium Level 7.3 mg/dL (8.5-10.1) L Magnesium Level 1.8 mg/dL (1.8-2.4) Total Bilirubin 0.2 mg/dL (0.2-1.0) Aspartate Amino Transferase (AST) 10 U/L (15-37) L Alanine Aminotransferase (ALT) 19 U/L (16-63) Alkaline Phosphatase 73 U/L (46-116) Creatine Kinase 30 U/L (39-308) L Troponin I Quantitative < 0.017 ng/mL (0-0.055) Total Protein 5.9 g/dL (6.4-8.2) L Albumin 2.2 g/dL (3.4-5.0) L Albumin/Globulin Ratio 0.6 (1.0-1.7) L Lipase 96 U/L (73-393) Ethyl Alcohol Level < 10 mg/dL (0-10) EKG EKG [] Radiology/Procedures Radiology/[place] [address] IMAGING REPORT Signed PATIENT: CHRISTIAN LOPEZ ACCOUNT: [id number] : 1965 LOCATION: ER AGE: 52 SEX: M EXAM STATUS: REG ER ORD. PHYSICIAN: PANCHITO SANDOVAL MD REASON: LLQ pain PROCEDURE: CT ABD PEL W/ORAL CONTRST ONLY Examination: CT of the abdomen pelvis with oral contrast HISTORY: History of abdominal pain for one day, history of Crohn's disease. COMPARISON: 02/10/2018 TECHNIQUE: Axial CT images of the abdomen pelvis were performed with oral contrast. Coronal and sagittal reformats are performed Exposure: One or more of the following individualized dose reduction techniques were utilized for this examination: 1. Automated exposure control 2. Adjustment of the mA and/or kV according to patient size 3. Use of iterative reconstruction technique FINDINGS: The bibasilar lungs are clear. No evidence of free air identified in the abdomen. The visualized noncontrasted liver, spleen, adrenals grossly appears unremarkable. The stomach is mildly distended. The small bowel is nondilated. Large amount of stool identified in the colon particularly in the sigmoid colon and the descending colon and transverse colon with dilated cecum is filled. There is decompression of the colon in the distal sigmoid region with twisting of bowel best visualized on series 2 image 107 with small amount of fluid in the distal rectum. There is mild thickened appearance of the wall of the rectum with surrounding mild fat stranding. Surgical changes identified in the right colon. Urinary bladder is mildly distended. Mild diffuse anasarca identified. No evidence of intrarenal collecting system calculi. Minimal prominent appearing bilateral ureters. No evidence of lytic bony destructive lesion. IMPRESSION: 1. Large bowel obstruction with likely twisting of bowel in the distal sigmoid colon suggestive of sigmoid volvulus. 2. The dilated colon is filled with feces. Critical results called to at time of dictation. Course & Med Decision Making Course & Med Decision Making Pertinent Labs and Imaging studies reviewed. (See chart for details) Evaluation of patient in ER showed 52-year-old male patient brought in by EMS because of severe left lower quadrant pain. Patient was ischemic at arrival to ER. Patient had generalized guarding of abdomen and left lower quadrant tenderness with mild distention of abdomen with gas. Patient had elevation of lactic acid at 2.5 without tachycardia, hypotension, fever and chills. Patient treated with IV fluid, Zofran, fentanyl and Rocephin. Blood sugar was 66 and patient treated with D50% at 12.5 g. Repeat blood sugar was 51 and patient had another dose of D50 of 12.5 IV. Patient requesting transferred to [facility] and Dr. Tyler Cartagena accepted transfer to [facility] at 1118. Patient and his family informed about test result and plan of care. Dragon Disclaimer Dragon Disclaimer This electronic medical record was generated, in whole or in part, using a voice recognition dictation system. Departure Departure: Impression: Primary Impression: Sigmoid volvulus Additional Impressions: Large bowel obstruction Anemia Hypoglycemia SIRS (systemic inflammatory response syndrome) Hypoalbuminemia Disposition: 05 XFER OTHER ([facility] @ 1119) Condition: GUARDED Referrals: MIGUEL AVERY DO (PCP) Critical Care Time Critical care time was 100 minutes exclusive of procedures. Problem Qualifiers PANCHITO SANDOVAL MD Mar 14, 2018 10:15
[2018-03-14] MEDS ORDERED: IV NORMAL SALINE 50ML 50 ML ONE (10:33)
[2018-03-14] MEDS ORDERED: cefTRIAXone SODIUM 1 GM VIAL IV ONE (10:33)
[2018-03-14 10:40] LABS: PLATELET CLUMP PRESENT; PLT ESTIMATE ADEQUATE (ADEQUATE)
[2018-03-14 10:41] LABS: ANISOCYTOSIS MOD; HYPOCHROMIA SLIGHT; MICROCYTOSIS SLIGHT; POLYCHROMASIA SLIGHT; SCHISTOCYTES FEW
[2018-03-14] MEDS ORDERED: DEXTROSE 50% 25 GM / 50ML DISP.SYRIN. IV ONE ×2 (10:45→12:25)
[2018-03-14] MEDS ORDERED: IV NORMAL SALINE 1,000ML 1,000 ML IV ONE (11:00)
--- NOTE | 2018-03-14 11:06 | RAD ---
Examination: CT of the abdomen pelvis with oral contrast HISTORY: History of abdominal pain for one day, history of Crohn's disease. COMPARISON: 02/10/2018 TECHNIQUE: Axial CT images of the abdomen pelvis were performed with oral contrast. Coronal and sagittal reformats are performed Exposure: One or more of the following individualized dose reduction techniques were utilized for this examination: 1. Automated exposure control 2. Adjustment of the mA and/or kV according to patient size 3. Use of iterative reconstruction technique FINDINGS: The bibasilar lungs are clear. No evidence of free air identified in the abdomen. The visualized noncontrasted liver, spleen, adrenals grossly appears unremarkable. The stomach is mildly distended. The small bowel is nondilated. Large amount of stool identified in the colon particularly in the sigmoid colon and the descending colon and transverse colon with dilated cecum is filled. There is decompression of the colon in the distal sigmoid region with twisting of bowel best visualized on series 2 image 107 with small amount of fluid in the distal rectum. There is mild thickened appearance of the wall of the rectum with surrounding mild fat stranding. Surgical changes identified in the right colon. Urinary bladder is mildly distended. Mild diffuse anasarca identified. No evidence of intrarenal collecting system calculi. Minimal prominent appearing bilateral ureters. No evidence of lytic bony destructive lesion. IMPRESSION: 1. Large bowel obstruction with likely twisting of bowel in the distal sigmoid colon suggestive of sigmoid volvulus. 2. The dilated colon is filled with feces. Critical results called to at time of dictation. Electronically signed by: Kevin Garza MD (03/14/2018 11:03 AM) [facility]
[2018-03-14] MEDS ORDERED: MORPHINE SULFATE 4 MG/ML DISP.SYRIN. IV ONE (12:00)
[2018-03-14 12:01] LABS: AMPHETAMINE/METHAMPHETAMINE NEG (NEG); BARBITURATES NEG (NEG); BENZODIAZEPINES NEG (NEG); CANNABINOIDS NEG (NEG); COCAINE NEG (NEG); METHADONE NEG (NEG); OPIATES NEG (NEG); PHENCYCLIDINE NEG (NEG)
[2018-03-14 12:05] LABS: BACTERIA,URINE 0 /HPF (0-FEW); BILIRUBIN,URINE NEG (NEG); CLARITY,URINE CLEAR; COLOR,URINE YELLOW; GLUCOSE,URINE NEG (NEG); NITRITE,URINE NEG (NEG); RBC,URINE RARE /HPF (0-2); SQUAMOUS EPITHELIAL CELL,UR OCC /LPF; UROBILINOGEN,URINE 0.2 mg/dL (0.2 mg/dL); WBC,URINE OCC /HPF (0-4)
[2018-03-14] MEDS ORDERED: IV DEXTROSE 10% 1,000 ML IV ONE (12:45)
== END 2018-03-14 12:40 | disposition short-term general hospital (02) ==
LOC: ER 09:02
DX: K56.2 Volvulus (principal); K56.609 Unspecified intestinal obstruction, unspecified as to partial versus complete obstruction; D64.9 Anemia, unspecified; E16.2 Hypoglycemia, unspecified; R65.10 Systemic inflammatory response syndrome (SIRS) of non-infectious origin without acute organ dysfunction; E88.09 Other disorders of plasma-protein metabolism, not elsewhere classified; I10 Essential (primary) hypertension; K58.9 Irritable bowel syndrome, unspecified; N28.9 Disorder of kidney and ureter, unspecified; K50.90 Crohn's disease, unspecified, without complications; Z86.718 Personal history of other venous thrombosis and embolism; Z86.2 Personal history of diseases of the blood and blood-forming organs and certain disorders involving the immune mechanism
CPT/HCPCS: 36415; 74176; 80053; 80307; 81001; 82274; 82550; 82947; 83605; 83690; 83735; 84484; 85025; 85610; 85730; 87040; 87086; 96361; 96365; 96366; 96375; 96376; 99285; G0480; J0696; J2270; J2405; J3010; J7030

== ENCOUNTER → 2018-06-08 | Outpatient (CLI) | payer OTHER, MEDICAID ==
[2018-06-08 11:58] LABS: BASO % 1 % (0-3); EOS # 0.5 x10^3/uL (0.0-0.7); EOS % 8 % (0-3); LYMPH # 1.7 x10^3/uL (1.0-4.8); LYMPH % 25 % (24-48); MEAN CORPUSCULAR HEMOGLOBIN 28 pg (25-35); MEAN CORPUSCULAR HGB CONC 33 g/dL (31-37); MEAN CORPUSCULAR VOLUME 85 fL (79-100); MONO # 0.9 x10^3/uL (0.0-1.1); MONO % 14 % (0-9); NEUT # 3.5 x10^3uL (1.8-7.7); NEUT % 53 % (31-73); PLATELET COUNT 331 x10^3/uL (140-400); RED BLOOD COUNT 2.21 x10^6/uL (4.30-5.70); RED CELL DISTRIBUTION WIDTH 17.3 % (11.5-14.5); WHITE BLOOD COUNT 6.7 x10^3/uL (4.0-11.0)
[2018-06-08 12:02] LABS: ALBUMIN 2.4 g/dL (3.4-5.0); ALBUMIN/GLOBULIN RATIO 0.5 (1.0-1.7); GFR 26.8; MAGNESIUM 2.2 mg/dL (1.8-2.4); POTASSIUM 4.9 mmol/L (3.5-5.1); TOTAL BILIRUBIN 0.1 mg/dL (0.2-1.0); TOTAL PROTEIN 7.5 g/dL (6.4-8.2)
[2018-06-08 12:12] LABS: HEMOGLOBIN 6.1 g/dL (13.0-17.5)
[2018-06-08 12:13] LABS: HEMATOCRIT 18.7 % (39.0-53.0)
== END | disposition home or self-care (01) ==
LOC: SPEC 11:30
DX: Z48.815 Encounter for surgical aftercare following surgery on the digestive system (principal); I12.9 Hypertensive chronic kidney disease with stage 1 through stage 4 chronic kidney disease, or unspecified chronic kidney disease; N18.2 Chronic kidney disease, stage 2 (mild); I48.91 Unspecified atrial fibrillation; E43 Unspecified severe protein-calorie malnutrition
CPT/HCPCS: 36415; 80053; 83735; 84100; 84134; 84478; 85025

== ENCOUNTER → 2018-06-15 | Outpatient (CLI) | payer OTHER, MEDICAID ==
[2018-06-15 12:16] LABS: ALBUMIN 2.8 g/dL (3.4-5.0); ALBUMIN/GLOBULIN RATIO 0.5 (1.0-1.7); BASO # 0.1 x10^3/uL (0.0-0.2); BASO % 1 % (0-3); CALCIUM 9.7 mg/dL (8.5-10.1); CREATININE 3.5 mg/dL (0.7-1.3); EOS # 0.4 x10^3/uL (0.0-0.7); EOS % 6 % (0-3); GFR 22.5; LYMPH # 1.6 x10^3/uL (1.0-4.8); LYMPH % 21 % (24-48); MAGNESIUM 2.4 mg/dL (1.8-2.4); MEAN CORPUSCULAR HEMOGLOBIN 28 pg (25-35); MEAN CORPUSCULAR HGB CONC 32 g/dL (31-37); MEAN CORPUSCULAR VOLUME 86 fL (79-100); MONO # 0.8 x10^3/uL (0.0-1.1); MONO % 10 % (0-9); NEUT # 4.9 x10^3uL (1.8-7.7); NEUT % 62 % (31-73); PHOSPHORUS 4.6 mg/dL (2.6-4.7); PLATELET COUNT 344 x10^3/uL (140-400); POTASSIUM 4.7 mmol/L (3.5-5.1); RED BLOOD COUNT 2.07 x10^6/uL (4.30-5.70); RED CELL DISTRIBUTION WIDTH 19.9 % (11.5-14.5); TOTAL BILIRUBIN 0.2 mg/dL (0.2-1.0); WHITE BLOOD COUNT 7.8 x10^3/uL (4.0-11.0)
[2018-06-15 12:27] LABS: HEMATOCRIT 17.9 % (39.0-53.0); HEMOGLOBIN 5.8 g/dL (13.0-17.5)
== END | disposition home or self-care (01) ==
LOC: SPEC 11:46
DX: I12.9 Hypertensive chronic kidney disease with stage 1 through stage 4 chronic kidney disease, or unspecified chronic kidney disease (principal); N18.2 Chronic kidney disease, stage 2 (mild); I48.91 Unspecified atrial fibrillation; Z48.815 Encounter for surgical aftercare following surgery on the digestive system
CPT/HCPCS: 36415; 80053; 83735; 84100; 84134; 84478; 85025

== ENCOUNTER → 2018-06-23 | Outpatient (CLI) | payer OTHER, MEDICAID ==
[2018-06-23 14:47] LABS: BASO % 1 % (0-3); EOS # 0.6 x10^3/uL (0.0-0.7); EOS % 10 % (0-3); HEMATOCRIT 24.6 % (39.0-53.0); LYMPH # 1.1 x10^3/uL (1.0-4.8); LYMPH % 19 % (24-48); MEAN CORPUSCULAR HEMOGLOBIN 28 pg (25-35); MEAN CORPUSCULAR HGB CONC 32 g/dL (31-37); MEAN CORPUSCULAR VOLUME 86 fL (79-100); MONO # 0.5 x10^3/uL (0.0-1.1); MONO % 9 % (0-9); NEUT # 3.4 x10^3uL (1.8-7.7); NEUT % 62 % (31-73); PLATELET COUNT 208 x10^3/uL (140-400); RED BLOOD COUNT 2.86 x10^6/uL (4.30-5.70); RED CELL DISTRIBUTION WIDTH 17.1 % (11.5-14.5); WHITE BLOOD COUNT 5.6 x10^3/uL (4.0-11.0)
[2018-06-23 14:50] LABS: ALBUMIN 2.5 g/dL (3.4-5.0); ALBUMIN/GLOBULIN RATIO 0.6 (1.0-1.7); CALCIUM 8.6 mg/dL (8.5-10.1); CREATININE 2.5 mg/dL (0.7-1.3); GFR 33.1; MAGNESIUM 1.7 mg/dL (1.8-2.4); PHOSPHORUS 3.4 mg/dL (2.6-4.7); POTASSIUM 4.2 mmol/L (3.5-5.1); TOTAL BILIRUBIN 0.5 mg/dL (0.2-1.0); TOTAL PROTEIN 6.9 g/dL (6.4-8.2)
== END | disposition home or self-care (01) ==
LOC: SPEC 14:25
DX: Z48.815 Encounter for surgical aftercare following surgery on the digestive system (principal); I12.9 Hypertensive chronic kidney disease with stage 1 through stage 4 chronic kidney disease, or unspecified chronic kidney disease; N18.2 Chronic kidney disease, stage 2 (mild); I48.91 Unspecified atrial fibrillation; E43 Unspecified severe protein-calorie malnutrition
CPT/HCPCS: 36415; 80053; 83735; 84100; 84134; 84478; 85025

== ENCOUNTER → 2018-07-07 | Outpatient (CLI) | payer OTHER, MEDICAID ==
[2018-07-07 13:57] LABS: BASO % 1 % (0-3); EOS # 0.3 x10^3/uL (0.0-0.7); EOS % 7 % (0-3); LYMPH # 1.1 x10^3/uL (1.0-4.8); LYMPH % 27 % (24-48); MEAN CORPUSCULAR HEMOGLOBIN 29 pg (25-35); MEAN CORPUSCULAR HGB CONC 33 g/dL (31-37); MEAN CORPUSCULAR VOLUME 87 fL (79-100); MONO # 0.6 x10^3/uL (0.0-1.1); MONO % 15 % (0-9); NEUT % 51 % (31-73); PLATELET COUNT 197 x10^3/uL (140-400); RED BLOOD COUNT 2.17 x10^6/uL (4.30-5.70); WHITE BLOOD COUNT 3.9 x10^3/uL (4.0-11.0)
[2018-07-07 13:59] LABS: ALBUMIN 2.5 g/dL (3.4-5.0); ALBUMIN/GLOBULIN RATIO 0.5 (1.0-1.7); CALCIUM 8.8 mg/dL (8.5-10.1); CREATININE 2.3 mg/dL (0.7-1.3); GFR 36.3; MAGNESIUM 2.2 mg/dL (1.8-2.4); POTASSIUM 4.4 mmol/L (3.5-5.1); TOTAL BILIRUBIN 0.2 mg/dL (0.2-1.0); TOTAL PROTEIN 7.2 g/dL (6.4-8.2)
[2018-07-07 14:09] LABS: HEMATOCRIT 18.9 % (39.0-53.0); HEMOGLOBIN 6.2 g/dL (13.0-17.5)
== END | disposition home or self-care (01) ==
LOC: SPEC 13:39
DX: I12.9 Hypertensive chronic kidney disease with stage 1 through stage 4 chronic kidney disease, or unspecified chronic kidney disease (principal); N18.2 Chronic kidney disease, stage 2 (mild); E43 Unspecified severe protein-calorie malnutrition; Z90.49 Acquired absence of other specified parts of digestive tract
CPT/HCPCS: 36415; 80053; 83735; 84100; 84134; 84478; 85025

== ENCOUNTER → 2018-07-14 | Outpatient (CLI) | payer OTHER, MEDICAID ==
[2018-07-14 13:30] LABS: BASO % 1 % (0-3); EOS # 0.4 x10^3/uL (0.0-0.7); EOS % 9 % (0-3); HEMOGLOBIN 7.5 g/dL (13.0-17.5); LYMPH # 1.2 x10^3/uL (1.0-4.8); LYMPH % 25 % (24-48); MEAN CORPUSCULAR HEMOGLOBIN 29 pg (25-35); MEAN CORPUSCULAR HGB CONC 33 g/dL (31-37); MEAN CORPUSCULAR VOLUME 88 fL (79-100); MONO # 0.7 x10^3/uL (0.0-1.1); MONO % 14 % (0-9); NEUT # 2.5 x10^3uL (1.8-7.7); NEUT % 52 % (31-73); PLATELET COUNT 251 x10^3/uL (140-400); RED BLOOD COUNT 2.62 x10^6/uL (4.30-5.70); RED CELL DISTRIBUTION WIDTH 17.6 % (11.5-14.5); WHITE BLOOD COUNT 4.9 x10^3/uL (4.0-11.0)
[2018-07-14 13:38] LABS: ALBUMIN 2.5 g/dL (3.4-5.0); ALBUMIN/GLOBULIN RATIO 0.5 (1.0-1.7); CALCIUM 8.8 mg/dL (8.5-10.1); CREATININE 2.2 mg/dL (0.7-1.3); GFR 38.2; MAGNESIUM 2.2 mg/dL (1.8-2.4); PHOSPHORUS 4.5 mg/dL (2.6-4.7); POTASSIUM 4.5 mmol/L (3.5-5.1); TOTAL BILIRUBIN 0.3 mg/dL (0.2-1.0); TOTAL PROTEIN 7.5 g/dL (6.4-8.2)
== END | disposition home or self-care (01) ==
LOC: SPEC 13:15
DX: Z48.815 Encounter for surgical aftercare following surgery on the digestive system (principal); I12.9 Hypertensive chronic kidney disease with stage 1 through stage 4 chronic kidney disease, or unspecified chronic kidney disease; E11.22 Type 2 diabetes mellitus with diabetic chronic kidney disease; N18.2 Chronic kidney disease, stage 2 (mild); E43 Unspecified severe protein-calorie malnutrition
CPT/HCPCS: 36415; 80053; 83735; 84100; 84134; 84478; 85025

== ENCOUNTER → 2018-07-20 | Outpatient (CLI) | payer OTHER, MEDICAID ==
[2018-07-20 10:52] LABS: BASO % 1 % (0-3); EOS # 0.3 x10^3/uL (0.0-0.7); EOS % 6 % (0-3); HEMATOCRIT 21.3 % (39.0-53.0); LYMPH % 22 % (24-48); MEAN CORPUSCULAR HEMOGLOBIN 29 pg (25-35); MEAN CORPUSCULAR HGB CONC 33 g/dL (31-37); MEAN CORPUSCULAR VOLUME 89 fL (79-100); MONO # 0.6 x10^3/uL (0.0-1.1); MONO % 15 % (0-9); NEUT # 2.4 x10^3uL (1.8-7.7); NEUT % 56 % (31-73); PLATELET COUNT 295 x10^3/uL (140-400); RED CELL DISTRIBUTION WIDTH 18.8 % (11.5-14.5); WHITE BLOOD COUNT 4.3 x10^3/uL (4.0-11.0)
[2018-07-20 11:00] LABS: ALBUMIN 2.4 g/dL (3.4-5.0); ALBUMIN/GLOBULIN RATIO 0.5 (1.0-1.7); CALCIUM 8.5 mg/dL (8.5-10.1); CREATININE 2.4 mg/dL (0.7-1.3); GFR 34.6; MAGNESIUM 2.7 mg/dL (1.8-2.4); PHOSPHORUS 4.9 mg/dL (2.6-4.7); TOTAL BILIRUBIN 0.2 mg/dL (0.2-1.0); TOTAL PROTEIN 7.3 g/dL (6.4-8.2)
[2018-07-20 11:03] LABS: HEMOGLOBIN 6.9 g/dL (13.0-17.5)
== END | disposition home or self-care (01) ==
LOC: SPEC 10:37
DX: Z48.815 Encounter for surgical aftercare following surgery on the digestive system (principal); I13.0 Hypertensive heart and chronic kidney disease with heart failure and stage 1 through stage 4 chronic kidney disease, or unspecified chronic kidney disease; E11.22 Type 2 diabetes mellitus with diabetic chronic kidney disease; I50.9 Heart failure, unspecified; N18.2 Chronic kidney disease, stage 2 (mild); I48.91 Unspecified atrial fibrillation
CPT/HCPCS: 36415; 80053; 83735; 84100; 84478; 85025

== ENCOUNTER → 2018-08-10 | Outpatient (CLI) | payer OTHER, MEDICAID ==
[2018-08-10 11:00] LABS: BASO # 0.1 x10^3/uL (0.0-0.2); BASO % 1 % (0-3); EOS # 0.7 x10^3/uL (0.0-0.7); EOS % 8 % (0-3); HEMATOCRIT 26.7 % (39.0-53.0); HEMOGLOBIN 8.5 g/dL (13.0-17.5); LYMPH # 1.5 x10^3/uL (1.0-4.8); LYMPH % 17 % (24-48); MEAN CORPUSCULAR HEMOGLOBIN 28 pg (25-35); MEAN CORPUSCULAR HGB CONC 32 g/dL (31-37); MEAN CORPUSCULAR VOLUME 88 fL (79-100); MONO % 12 % (0-9); NEUT # 5.5 x10^3uL (1.8-7.7); NEUT % 63 % (31-73); PLATELET COUNT 271 x10^3/uL (140-400); RED BLOOD COUNT 3.05 x10^6/uL (4.30-5.70); RED CELL DISTRIBUTION WIDTH 19.8 % (11.5-14.5); WHITE BLOOD COUNT 8.7 x10^3/uL (4.0-11.0)
[2018-08-10 11:17] LABS: ALBUMIN 2.3 g/dL (3.4-5.0); ALBUMIN/GLOBULIN RATIO 0.5 (1.0-1.7); CALCIUM 8.5 mg/dL (8.5-10.1); CREATININE 1.9 mg/dL (0.7-1.3); GFR 45.3; MAGNESIUM 2.1 mg/dL (1.8-2.4); POTASSIUM 5.5 mmol/L (3.5-5.1); TOTAL BILIRUBIN 0.2 mg/dL (0.2-1.0)
== END | disposition home or self-care (01) ==
LOC: SPEC 10:41
DX: Z48.815 Encounter for surgical aftercare following surgery on the digestive system (principal); I13.0 Hypertensive heart and chronic kidney disease with heart failure and stage 1 through stage 4 chronic kidney disease, or unspecified chronic kidney disease; E11.22 Type 2 diabetes mellitus with diabetic chronic kidney disease; I50.9 Heart failure, unspecified; N18.2 Chronic kidney disease, stage 2 (mild); I48.91 Unspecified atrial fibrillation
CPT/HCPCS: 36415; 80053; 83735; 84100; 84134; 84478; 85025

== ENCOUNTER → 2018-09-08 | Outpatient (CLI) | payer OTHER, MEDICAID ==
[2018-09-08 14:59] LABS: CALCIUM 8.7 mg/dL (8.5-10.1); CREATININE 2.2 mg/dL (0.7-1.3); GFR 38.2; MAGNESIUM 1.7 mg/dL (1.8-2.4); PHOSPHORUS 3.8 mg/dL (2.6-4.7); POTASSIUM 3.9 mmol/L (3.5-5.1)
== END | disposition home or self-care (01) ==
LOC: SPEC 14:30
DX: I12.9 Hypertensive chronic kidney disease with stage 1 through stage 4 chronic kidney disease, or unspecified chronic kidney disease (principal); N18.2 Chronic kidney disease, stage 2 (mild); E43 Unspecified severe protein-calorie malnutrition; K50.818 Crohn's disease of both small and large intestine with other complication
CPT/HCPCS: 36415; 80048; 83735; 84100

== ENCOUNTER → 2018-09-14 | Outpatient (CLI) | payer OTHER, MEDICAID ==
[2018-09-14 10:28] LABS: BASO % 0 % (0-3); EOS # 0.4 x10^3/uL (0.0-0.7); EOS % 9 % (0-3); HEMATOCRIT 24.7 % (39.0-53.0); HEMOGLOBIN 8.1 g/dL (13.0-17.5); LYMPH # 1.1 x10^3/uL (1.0-4.8); LYMPH % 25 % (24-48); MEAN CORPUSCULAR HEMOGLOBIN 28 pg (25-35); MEAN CORPUSCULAR HGB CONC 33 g/dL (31-37); MEAN CORPUSCULAR VOLUME 84 fL (79-100); MONO # 0.5 x10^3/uL (0.0-1.1); MONO % 12 % (0-9); NEUT # 2.5 x10^3uL (1.8-7.7); NEUT % 55 % (31-73); PLATELET COUNT 307 x10^3/uL (140-400); RED BLOOD COUNT 2.94 x10^6/uL (4.30-5.70); RED CELL DISTRIBUTION WIDTH 21.4 % (11.5-14.5); WHITE BLOOD COUNT 4.6 x10^3/uL (4.0-11.0)
[2018-09-14 10:42] LABS: ALBUMIN 2.5 g/dL (3.4-5.0); ALBUMIN/GLOBULIN RATIO 0.5 (1.0-1.7); CREATININE 2.9 mg/dL (0.7-1.3); GFR 27.8; MAGNESIUM 2.6 mg/dL (1.8-2.4); PHOSPHORUS 3.7 mg/dL (2.6-4.7); POTASSIUM 3.3 mmol/L (3.5-5.1); TOTAL BILIRUBIN 0.2 mg/dL (0.2-1.0); TOTAL PROTEIN 7.3 g/dL (6.4-8.2)
[2018-09-14 11:42] LABS: ANISOCYTOSIS MOD; HYPOCHROMIA SLIGHT; MICROCYTOSIS SLIGHT; PLT ESTIMATE ADEQUATE (ADEQUATE)
[2018-09-14 11:43] LABS: SCHISTOCYTES OCC; TARGET CELLS OCC
== END | disposition home or self-care (01) ==
LOC: SPEC 10:04
PROVIDERS: ATTEND Internal Medicine Infectious Disease
DX: J86.9 Pyothorax without fistula (principal); I13.0 Hypertensive heart and chronic kidney disease with heart failure and stage 1 through stage 4 chronic kidney disease, or unspecified chronic kidney disease; E11.22 Type 2 diabetes mellitus with diabetic chronic kidney disease; I50.9 Heart failure, unspecified; N18.2 Chronic kidney disease, stage 2 (mild); E43 Unspecified severe protein-calorie malnutrition; Z79.01 Long term (current) use of anticoagulants
CPT/HCPCS: 36415; 80053; 83735; 84100; 84134; 84478; 85025; 87040

== ENCOUNTER → 2018-09-18 | Outpatient (CLI) | payer OTHER, MEDICAID | END | disposition home or self-care (01) | LOC: SPEC 11:47 | PROVIDERS: ATTEND Internal Medicine | DX: I12.9 Hypertensive chronic kidney disease with stage 1 through stage 4 chronic kidney disease, or unspecified chronic kidney disease (principal); N18.2 Chronic kidney disease, stage 2 (mild); E43 Unspecified severe protein-calorie malnutrition; Z79.01 Long term (current) use of anticoagulants | CPT/HCPCS: 87040 ==

== ENCOUNTER → 2018-09-21 | Outpatient (CLI) | payer OTHER, MEDICAID ==
[2018-09-21 12:30] LABS: BASO % 1 % (0-3); EOS # 0.3 x10^3/uL (0.0-0.7); EOS % 6 % (0-3); HEMATOCRIT 28.5 % (39.0-53.0); HEMOGLOBIN 8.9 g/dL (13.0-17.5); LYMPH # 1.6 x10^3/uL (1.0-4.8); LYMPH % 32 % (24-48); MEAN CORPUSCULAR HEMOGLOBIN 27 pg (25-35); MEAN CORPUSCULAR HGB CONC 31 g/dL (31-37); MEAN CORPUSCULAR VOLUME 86 fL (79-100); MONO # 0.5 x10^3/uL (0.0-1.1); MONO % 11 % (0-9); NEUT # 2.5 x10^3uL (1.8-7.7); NEUT % 50 % (31-73); PLATELET COUNT 275 x10^3/uL (140-400); RED BLOOD COUNT 3.33 x10^6/uL (4.30-5.70); RED CELL DISTRIBUTION WIDTH 20.7 % (11.5-14.5); WHITE BLOOD COUNT 5.1 x10^3/uL (4.0-11.0)
[2018-09-21 12:36] LABS: ALBUMIN 2.8 g/dL (3.4-5.0); ALBUMIN/GLOBULIN RATIO 0.5 (1.0-1.7); CALCIUM 8.3 mg/dL (8.5-10.1); CREATININE 2.7 mg/dL (0.7-1.3); GFR 30.2; MAGNESIUM 2.4 mg/dL (1.8-2.4); PHOSPHORUS 3.6 mg/dL (2.6-4.7); POTASSIUM 3.5 mmol/L (3.5-5.1); TOTAL BILIRUBIN 0.2 mg/dL (0.2-1.0); TOTAL PROTEIN 8.1 g/dL (6.4-8.2)
[2018-09-21 13:34] LABS: PLT ESTIMATE ADEQUATE (ADEQUATE)
[2018-09-21 13:36] LABS: ANISOCYTOSIS MOD; HYPOCHROMIA SLIGHT; MICROCYTOSIS SLIGHT
== END | disposition home or self-care (01) ==
LOC: SPEC 12:12
PROVIDERS: ATTEND Internal Medicine
DX: I12.9 Hypertensive chronic kidney disease with stage 1 through stage 4 chronic kidney disease, or unspecified chronic kidney disease (principal); N18.2 Chronic kidney disease, stage 2 (mild); E43 Unspecified severe protein-calorie malnutrition; Z79.01 Long term (current) use of anticoagulants
CPT/HCPCS: 36415; 80053; 83735; 84100; 84134; 84478; 85025

== ENCOUNTER → 2018-10-26 | Outpatient (CLI) | payer OTHER, MEDICAID ==
[2018-10-26 12:31] LABS: ALBUMIN 2.8 g/dL (3.4-5.0); ALBUMIN/GLOBULIN RATIO 0.6 (1.0-1.7); CALCIUM 8.8 mg/dL (8.5-10.1); CREATININE 2.3 mg/dL (0.7-1.3); GFR 36.3; MAGNESIUM 1.8 mg/dL (1.8-2.4); PHOSPHORUS 3.9 mg/dL (2.6-4.7); POTASSIUM 4.2 mmol/L (3.5-5.1); TOTAL BILIRUBIN 0.3 mg/dL (0.2-1.0); TOTAL PROTEIN 7.7 g/dL (6.4-8.2)
[2018-10-26 13:11] LABS: BASO % 1 % (0-3); EOS # 0.2 x10^3/uL (0.0-0.7); EOS % 6 % (0-3); HEMATOCRIT 27.6 % (39.0-53.0); HEMOGLOBIN 8.7 g/dL (13.0-17.5); LYMPH # 1.4 x10^3/uL (1.0-4.8); LYMPH % 39 % (24-48); MEAN CORPUSCULAR HEMOGLOBIN 27 pg (25-35); MEAN CORPUSCULAR HGB CONC 32 g/dL (31-37); MEAN CORPUSCULAR VOLUME 86 fL (79-100); MONO # 0.4 x10^3/uL (0.0-1.1); MONO % 11 % (0-9); NEUT # 1.6 x10^3uL (1.8-7.7); NEUT % 44 % (31-73); PLATELET COUNT 198 x10^3/uL (140-400); RED BLOOD COUNT 3.19 x10^6/uL (4.30-5.70); RED CELL DISTRIBUTION WIDTH 18.9 % (11.5-14.5); WHITE BLOOD COUNT 3.7 x10^3/uL (4.0-11.0)
== END | disposition home or self-care (01) ==
LOC: SPEC 11:52
PROVIDERS: ATTEND Internal Medicine
DX: I12.9 Hypertensive chronic kidney disease with stage 1 through stage 4 chronic kidney disease, or unspecified chronic kidney disease (principal); N18.2 Chronic kidney disease, stage 2 (mild); E21.3 Hyperparathyroidism, unspecified; K50.918 Crohn's disease, unspecified, with other complication
CPT/HCPCS: 36415; 80053; 83735; 84100; 84478; 85025

== ENCOUNTER → 2018-11-30 | Outpatient (CLI) | payer OTHER, MEDICAID ==
[2018-11-30 11:47] LABS: BASO % 1 % (0-3); EOS # 0.2 x10^3/uL (0.0-0.7); EOS % 5 % (0-3); LYMPH # 1.8 x10^3/uL (1.0-4.8); LYMPH % 47 % (24-48); MEAN CORPUSCULAR HEMOGLOBIN 27 pg (25-35); MEAN CORPUSCULAR HGB CONC 31 g/dL (31-37); MEAN CORPUSCULAR VOLUME 86 fL (79-100); MONO # 0.5 x10^3/uL (0.0-1.1); MONO % 13 % (0-9); NEUT # 1.3 x10^3uL (1.8-7.7); NEUT % 34 % (31-73); PLATELET COUNT 209 x10^3/uL (140-400); RED BLOOD COUNT 3.36 x10^6/uL (4.30-5.70); WHITE BLOOD COUNT 3.9 x10^3/uL (4.0-11.0)
[2018-11-30 11:53] LABS: ALBUMIN 2.8 g/dL (3.4-5.0); ALBUMIN/GLOBULIN RATIO 0.6 (1.0-1.7); CALCIUM 8.6 mg/dL (8.5-10.1); CREATININE 2.5 mg/dL (0.7-1.3); MAGNESIUM 1.8 mg/dL (1.8-2.4); PHOSPHORUS 3.9 mg/dL (2.6-4.7); POTASSIUM 4.8 mmol/L (3.5-5.1); TOTAL BILIRUBIN 0.1 mg/dL (0.2-1.0); TOTAL PROTEIN 7.6 g/dL (6.4-8.2)
== END | disposition home or self-care (01) ==
LOC: SPEC 11:34
PROVIDERS: ATTEND Internal Medicine
DX: Z43.3 Encounter for attention to colostomy (principal); I12.9 Hypertensive chronic kidney disease with stage 1 through stage 4 chronic kidney disease, or unspecified chronic kidney disease; N18.2 Chronic kidney disease, stage 2 (mild); E43 Unspecified severe protein-calorie malnutrition
CPT/HCPCS: 36415; 80053; 83735; 84100; 84134; 84478; 85025

== ENCOUNTER → 2018-12-07 | Outpatient (CLI) | payer OTHER, MEDICAID ==
[2018-12-07 12:03] LABS: BASO % 1 % (0-3); EOS # 0.2 x10^3/uL (0.0-0.7); EOS % 5 % (0-3); HEMATOCRIT 26.9 % (39.0-53.0); HEMOGLOBIN 8.5 g/dL (13.0-17.5); LYMPH # 1.4 x10^3/uL (1.0-4.8); LYMPH % 41 % (24-48); MEAN CORPUSCULAR HEMOGLOBIN 27 pg (25-35); MEAN CORPUSCULAR HGB CONC 32 g/dL (31-37); MEAN CORPUSCULAR VOLUME 86 fL (79-100); MONO # 0.4 x10^3/uL (0.0-1.1); MONO % 13 % (0-9); NEUT # 1.4 x10^3uL (1.8-7.7); NEUT % 41 % (31-73); PLATELET COUNT 184 x10^3/uL (140-400); RED BLOOD COUNT 3.14 x10^6/uL (4.30-5.70); RED CELL DISTRIBUTION WIDTH 17.2 % (11.5-14.5); WHITE BLOOD COUNT 3.5 x10^3/uL (4.0-11.0)
[2018-12-07 12:12] LABS: ALBUMIN 2.6 g/dL (3.4-5.0); ALBUMIN/GLOBULIN RATIO 0.6 (1.0-1.7); GFR 42.7; MAGNESIUM 1.5 mg/dL (1.8-2.4); PHOSPHORUS 4.1 mg/dL (2.6-4.7); POTASSIUM 4.4 mmol/L (3.5-5.1); TOTAL BILIRUBIN 0.1 mg/dL (0.2-1.0); TOTAL PROTEIN 6.9 g/dL (6.4-8.2)
== END | disposition home or self-care (01) ==
LOC: SPEC 11:50
PROVIDERS: ATTEND Internal Medicine
DX: I12.9 Hypertensive chronic kidney disease with stage 1 through stage 4 chronic kidney disease, or unspecified chronic kidney disease (principal); N18.2 Chronic kidney disease, stage 2 (mild); E43 Unspecified severe protein-calorie malnutrition; K50.818 Crohn's disease of both small and large intestine with other complication
CPT/HCPCS: 36415; 80053; 83735; 84100; 84134; 84478; 85025

== ENCOUNTER → 2018-12-28 | Outpatient (CLI) | payer OTHER, MEDICAID ==
[2018-12-28 10:21] LABS: BASO % 1 % (0-3); EOS # 0.2 x10^3/uL (0.0-0.7); EOS % 6 % (0-3); HEMATOCRIT 26.9 % (39.0-53.0); HEMOGLOBIN 8.4 g/dL (13.0-17.5); LYMPH # 1.2 x10^3/uL (1.0-4.8); LYMPH % 39 % (24-48); MEAN CORPUSCULAR HEMOGLOBIN 26 pg (25-35); MEAN CORPUSCULAR HGB CONC 31 g/dL (31-37); MEAN CORPUSCULAR VOLUME 84 fL (79-100); MONO # 0.4 x10^3/uL (0.0-1.1); MONO % 11 % (0-9); NEUT # 1.4 x10^3uL (1.8-7.7); NEUT % 43 % (31-73); PLATELET COUNT 192 x10^3/uL (140-400); RED BLOOD COUNT 3.19 x10^6/uL (4.30-5.70); RED CELL DISTRIBUTION WIDTH 16.8 % (11.5-14.5); WHITE BLOOD COUNT 3.2 x10^3/uL (4.0-11.0)
[2018-12-28 10:27] LABS: ALBUMIN 2.6 g/dL (3.4-5.0); ALBUMIN/GLOBULIN RATIO 0.6 (1.0-1.7); CREATININE 2.1 mg/dL (0.7-1.3); GFR 40.3; MAGNESIUM 1.6 mg/dL (1.8-2.4); PHOSPHORUS 3.5 mg/dL (2.6-4.7); POTASSIUM 3.6 mmol/L (3.5-5.1); TOTAL BILIRUBIN 0.1 mg/dL (0.2-1.0); TOTAL PROTEIN 6.7 g/dL (6.4-8.2)
== END | disposition home or self-care (01) ==
LOC: SPEC 10:01
PROVIDERS: ATTEND Internal Medicine Gastroenterology
DX: I12.9 Hypertensive chronic kidney disease with stage 1 through stage 4 chronic kidney disease, or unspecified chronic kidney disease (principal); N18.2 Chronic kidney disease, stage 2 (mild); E43 Unspecified severe protein-calorie malnutrition; Z90.49 Acquired absence of other specified parts of digestive tract
CPT/HCPCS: 36415; 80053; 83735; 84100; 84134; 84478; 85025

== ENCOUNTER → 2019-01-04 | Outpatient (CLI) | payer OTHER, MEDICAID ==
[2019-01-04 12:49] LABS: BASO % 1 % (0-3); EOS # 0.2 x10^3/uL (0.0-0.7); EOS % 5 % (0-3); HEMOGLOBIN 7.5 g/dL (13.0-17.5); LYMPH # 1.3 x10^3/uL (1.0-4.8); LYMPH % 31 % (24-48); MEAN CORPUSCULAR HEMOGLOBIN 26 pg (25-35); MEAN CORPUSCULAR HGB CONC 31 g/dL (31-37); MEAN CORPUSCULAR VOLUME 83 fL (79-100); MONO # 0.4 x10^3/uL (0.0-1.1); MONO % 10 % (0-9); NEUT # 2.3 x10^3uL (1.8-7.7); NEUT % 53 % (31-73); PLATELET COUNT 227 x10^3/uL (140-400); RED BLOOD COUNT 2.88 x10^6/uL (4.30-5.70); RED CELL DISTRIBUTION WIDTH 16.6 % (11.5-14.5); WHITE BLOOD COUNT 4.2 x10^3/uL (4.0-11.0)
[2019-01-04 12:59] LABS: ALBUMIN 2.3 g/dL (3.4-5.0); ALBUMIN/GLOBULIN RATIO 0.5 (1.0-1.7); CREATININE 2.2 mg/dL (0.7-1.3); GFR 38.2; MAGNESIUM 1.6 mg/dL (1.8-2.4); PHOSPHORUS 3.6 mg/dL (2.6-4.7); POTASSIUM 3.6 mmol/L (3.5-5.1); TOTAL BILIRUBIN 0.1 mg/dL (0.2-1.0); TOTAL PROTEIN 7.3 g/dL (6.4-8.2)
== END | disposition home or self-care (01) ==
LOC: SPEC 12:34
PROVIDERS: ATTEND Internal Medicine
DX: I12.9 Hypertensive chronic kidney disease with stage 1 through stage 4 chronic kidney disease, or unspecified chronic kidney disease (principal); N18.2 Chronic kidney disease, stage 2 (mild); E43 Unspecified severe protein-calorie malnutrition; K50.818 Crohn's disease of both small and large intestine with other complication
CPT/HCPCS: 36415; 80053; 83735; 84100; 84134; 84478; 85025

== ENCOUNTER → 2019-01-11 | Outpatient (CLI) | payer OTHER, MEDICAID ==
[2019-01-11 14:49] LABS: BASO % 0 % (0-3); EOS # 0.2 x10^3/uL (0.0-0.7); EOS % 5 % (0-3); HEMATOCRIT 25.6 % (39.0-53.0); LYMPH # 1.7 x10^3/uL (1.0-4.8); LYMPH % 38 % (24-48); MEAN CORPUSCULAR HEMOGLOBIN 26 pg (25-35); MEAN CORPUSCULAR HGB CONC 31 g/dL (31-37); MEAN CORPUSCULAR VOLUME 84 fL (79-100); MONO # 0.5 x10^3/uL (0.0-1.1); MONO % 11 % (0-9); NEUT % 46 % (31-73); PLATELET COUNT 361 x10^3/uL (140-400); RED BLOOD COUNT 3.06 x10^6/uL (4.30-5.70); RED CELL DISTRIBUTION WIDTH 17.1 % (11.5-14.5); WHITE BLOOD COUNT 4.4 x10^3/uL (4.0-11.0)
[2019-01-11 14:57] LABS: ALBUMIN 2.6 g/dL (3.4-5.0); ALBUMIN/GLOBULIN RATIO 0.5 (1.0-1.7); CALCIUM 8.4 mg/dL (8.5-10.1); CREATININE 2.3 mg/dL (0.7-1.3); GFR 36.3; MAGNESIUM 1.8 mg/dL (1.8-2.4); POTASSIUM 5.1 mmol/L (3.5-5.1); TOTAL BILIRUBIN 0.1 mg/dL (0.2-1.0); TOTAL PROTEIN 7.7 g/dL (6.4-8.2)
== END | disposition home or self-care (01) ==
LOC: SPEC 14:29
PROVIDERS: ATTEND Internal Medicine
DX: Z43.3 Encounter for attention to colostomy (principal); I12.9 Hypertensive chronic kidney disease with stage 1 through stage 4 chronic kidney disease, or unspecified chronic kidney disease; N18.2 Chronic kidney disease, stage 2 (mild); E43 Unspecified severe protein-calorie malnutrition
CPT/HCPCS: 36415; 80053; 83735; 84100; 84134; 84478; 85025

== ENCOUNTER → 2019-01-18 | Outpatient (CLI) | payer OTHER, MEDICAID ==
[2019-01-18 14:41] LABS: BASO % 1 % (0-3); EOS # 0.2 x10^3/uL (0.0-0.7); EOS % 4 % (0-3); HEMATOCRIT 26.9 % (39.0-53.0); HEMOGLOBIN 8.2 g/dL (13.0-17.5); LYMPH # 1.6 x10^3/uL (1.0-4.8); LYMPH % 36 % (24-48); MEAN CORPUSCULAR HEMOGLOBIN 26 pg (25-35); MEAN CORPUSCULAR HGB CONC 31 g/dL (31-37); MEAN CORPUSCULAR VOLUME 84 fL (79-100); MONO # 0.5 x10^3/uL (0.0-1.1); MONO % 11 % (0-9); NEUT # 2.2 x10^3uL (1.8-7.7); NEUT % 49 % (31-73); PLATELET COUNT 371 x10^3/uL (140-400); RED BLOOD COUNT 3.19 x10^6/uL (4.30-5.70); RED CELL DISTRIBUTION WIDTH 17.3 % (11.5-14.5); WHITE BLOOD COUNT 4.5 x10^3/uL (4.0-11.0)
[2019-01-18 15:19] LABS: ALBUMIN 3.6 g/dL (3.4-5.0); CALCIUM 9.3 mg/dL (8.5-10.1); GFR 94.9; MAGNESIUM 1.8 mg/dL (1.8-2.4); PHOSPHORUS 4.2 mg/dL (2.6-4.7); POTASSIUM 4.4 mmol/L (3.5-5.1); TOTAL BILIRUBIN 0.3 mg/dL (0.2-1.0); TOTAL PROTEIN 7.2 g/dL (6.4-8.2)
== END | disposition home or self-care (01) ==
LOC: SPEC 14:17
PROVIDERS: ATTEND Internal Medicine Gastroenterology
DX: I12.9 Hypertensive chronic kidney disease with stage 1 through stage 4 chronic kidney disease, or unspecified chronic kidney disease (principal); N18.2 Chronic kidney disease, stage 2 (mild); E43 Unspecified severe protein-calorie malnutrition; Z90.49 Acquired absence of other specified parts of digestive tract
CPT/HCPCS: 36415; 80053; 83735; 84100; 84134; 84478; 85025

== ENCOUNTER → 2019-01-25 | Outpatient (CLI) | payer OTHER, MEDICAID ==
[2019-01-25 17:07] LABS: BASO % 0 % (0-3); EOS # 0.3 x10^3/uL (0.0-0.7); EOS % 8 % (0-3); HEMATOCRIT 28.6 % (39.0-53.0); HEMOGLOBIN 8.8 g/dL (13.0-17.5); LYMPH # 1.3 x10^3/uL (1.0-4.8); LYMPH % 38 % (24-48); MEAN CORPUSCULAR HEMOGLOBIN 26 pg (25-35); MEAN CORPUSCULAR HGB CONC 31 g/dL (31-37); MEAN CORPUSCULAR VOLUME 84 fL (79-100); MONO # 0.4 x10^3/uL (0.0-1.1); MONO % 11 % (0-9); NEUT # 1.5 x10^3uL (1.8-7.7); NEUT % 42 % (31-73); PLATELET COUNT 230 x10^3/uL (140-400); RED BLOOD COUNT 3.43 x10^6/uL (4.30-5.70); RED CELL DISTRIBUTION WIDTH 17.2 % (11.5-14.5); WHITE BLOOD COUNT 3.4 x10^3/uL (4.0-11.0)
[2019-01-25 17:38] LABS: ALBUMIN 2.7 g/dL (3.4-5.0); ALBUMIN/GLOBULIN RATIO 0.5 (1.0-1.7); CALCIUM 8.6 mg/dL (8.5-10.1); CREATININE 2.1 mg/dL (0.7-1.3); GFR 40.3; MAGNESIUM 1.7 mg/dL (1.8-2.4); PHOSPHORUS 3.1 mg/dL (2.6-4.7); POTASSIUM 5.4 mmol/L (3.5-5.1); TOTAL BILIRUBIN 0.2 mg/dL (0.2-1.0); TOTAL PROTEIN 7.8 g/dL (6.4-8.2)
== END | disposition home or self-care (01) ==
LOC: SPEC 16:22
PROVIDERS: ATTEND Internal Medicine Gastroenterology
DX: I12.9 Hypertensive chronic kidney disease with stage 1 through stage 4 chronic kidney disease, or unspecified chronic kidney disease (principal); N18.2 Chronic kidney disease, stage 2 (mild); E43 Unspecified severe protein-calorie malnutrition; Z90.49 Acquired absence of other specified parts of digestive tract
CPT/HCPCS: 36415; 80053; 83735; 84100; 84134; 84478; 85025

== ENCOUNTER → 2019-02-01 | Outpatient (CLI) | payer OTHER, MEDICAID ==
[2019-02-01 12:22] LABS: BASO % 1 % (0-3); EOS # 0.2 x10^3/uL (0.0-0.7); EOS % 5 % (0-3); HEMATOCRIT 27.2 % (39.0-53.0); HEMOGLOBIN 8.5 g/dL (13.0-17.5); LYMPH # 1.5 x10^3/uL (1.0-4.8); LYMPH % 34 % (24-48); MEAN CORPUSCULAR HEMOGLOBIN 26 pg (25-35); MEAN CORPUSCULAR HGB CONC 31 g/dL (31-37); MEAN CORPUSCULAR VOLUME 83 fL (79-100); MONO # 0.6 x10^3/uL (0.0-1.1); MONO % 15 % (0-9); NEUT % 45 % (31-73); PLATELET COUNT 222 x10^3/uL (140-400); RED BLOOD COUNT 3.27 x10^6/uL (4.30-5.70); RED CELL DISTRIBUTION WIDTH 17.9 % (11.5-14.5); WHITE BLOOD COUNT 4.4 x10^3/uL (4.0-11.0)
[2019-02-01 12:28] LABS: ALBUMIN 2.9 g/dL (3.4-5.0); ALBUMIN/GLOBULIN RATIO 0.6 (1.0-1.7); CALCIUM 7.6 mg/dL (8.5-10.1); CREATININE 2.6 mg/dL (0.7-1.3); GFR 31.5; MAGNESIUM 1.5 mg/dL (1.8-2.4); PHOSPHORUS 4.9 mg/dL (2.6-4.7); POTASSIUM 4.4 mmol/L (3.5-5.1); TOTAL BILIRUBIN 0.3 mg/dL (0.2-1.0)
== END | disposition home or self-care (01) ==
LOC: SPEC 11:46
PROVIDERS: ATTEND Internal Medicine Gastroenterology
DX: Z43.4 Encounter for attention to other artificial openings of digestive tract (principal); I12.9 Hypertensive chronic kidney disease with stage 1 through stage 4 chronic kidney disease, or unspecified chronic kidney disease; N18.2 Chronic kidney disease, stage 2 (mild); E43 Unspecified severe protein-calorie malnutrition
CPT/HCPCS: 36415; 80053; 83735; 84100; 84134; 84478; 85025

== ENCOUNTER → 2019-02-08 | Outpatient (CLI) | payer OTHER, MEDICAID ==
[2019-02-08 13:31] LABS: BASO % 1 % (0-3); EOS # 0.3 x10^3/uL (0.0-0.7); EOS % 6 % (0-3); HEMATOCRIT 27.3 % (39.0-53.0); HEMOGLOBIN 8.5 g/dL (13.0-17.5); LYMPH # 1.5 x10^3/uL (1.0-4.8); LYMPH % 33 % (24-48); MEAN CORPUSCULAR HEMOGLOBIN 26 pg (25-35); MEAN CORPUSCULAR HGB CONC 31 g/dL (31-37); MEAN CORPUSCULAR VOLUME 82 fL (79-100); MONO # 0.5 x10^3/uL (0.0-1.1); MONO % 12 % (0-9); NEUT # 2.2 x10^3uL (1.8-7.7); NEUT % 49 % (31-73); PLATELET COUNT 253 x10^3/uL (140-400); RED BLOOD COUNT 3.33 x10^6/uL (4.30-5.70); RED CELL DISTRIBUTION WIDTH 17.2 % (11.5-14.5); WHITE BLOOD COUNT 4.6 x10^3/uL (4.0-11.0)
[2019-02-08 13:35] LABS: ALBUMIN 3.1 g/dL (3.4-5.0); ALBUMIN/GLOBULIN RATIO 0.6 (1.0-1.7); CALCIUM 8.4 mg/dL (8.5-10.1); CREATININE 2.9 mg/dL (0.7-1.3); GFR 27.8; MAGNESIUM 2.2 mg/dL (1.8-2.4); PHOSPHORUS 4.1 mg/dL (2.6-4.7); POTASSIUM 4.3 mmol/L (3.5-5.1); TOTAL BILIRUBIN 0.2 mg/dL (0.2-1.0); TOTAL PROTEIN 8.2 g/dL (6.4-8.2)
== END | disposition home or self-care (01) ==
LOC: SPEC 12:49
PROVIDERS: ATTEND Internal Medicine Gastroenterology
DX: Z43.3 Encounter for attention to colostomy (principal); I12.9 Hypertensive chronic kidney disease with stage 1 through stage 4 chronic kidney disease, or unspecified chronic kidney disease; N18.2 Chronic kidney disease, stage 2 (mild); E43 Unspecified severe protein-calorie malnutrition
CPT/HCPCS: 36415; 80053; 83735; 84100; 84134; 84478; 85025

== ENCOUNTER → 2019-02-15 | Outpatient (CLI) | payer OTHER, MEDICAID ==
[2019-02-15 12:16] LABS: BASO % 0 % (0-3); EOS # 0.3 x10^3/uL (0.0-0.7); EOS % 8 % (0-3); HEMATOCRIT 26.9 % (39.0-53.0); HEMOGLOBIN 8.5 g/dL (13.0-17.5); LYMPH # 1.4 x10^3/uL (1.0-4.8); LYMPH % 36 % (24-48); MEAN CORPUSCULAR HEMOGLOBIN 26 pg (25-35); MEAN CORPUSCULAR HGB CONC 32 g/dL (31-37); MEAN CORPUSCULAR VOLUME 82 fL (79-100); MONO # 0.4 x10^3/uL (0.0-1.1); MONO % 10 % (0-9); NEUT # 1.8 x10^3uL (1.8-7.7); NEUT % 46 % (31-73); PLATELET COUNT 243 x10^3/uL (140-400); RED CELL DISTRIBUTION WIDTH 17.8 % (11.5-14.5)
[2019-02-15 12:23] LABS: ALBUMIN 3.3 g/dL (3.4-5.0); ALBUMIN/GLOBULIN RATIO 0.7 (1.0-1.7); CREATININE 3.7 mg/dL (0.7-1.3); MAGNESIUM 1.9 mg/dL (1.8-2.4); PHOSPHORUS 4.3 mg/dL (2.6-4.7); POTASSIUM 4.9 mmol/L (3.5-5.1); TOTAL BILIRUBIN 0.3 mg/dL (0.2-1.0); TOTAL PROTEIN 8.1 g/dL (6.4-8.2)
== END | disposition home or self-care (01) ==
LOC: SPEC 11:52
PROVIDERS: ATTEND Internal Medicine Gastroenterology
DX: Z43.3 Encounter for attention to colostomy (principal); I12.9 Hypertensive chronic kidney disease with stage 1 through stage 4 chronic kidney disease, or unspecified chronic kidney disease; N18.2 Chronic kidney disease, stage 2 (mild); E43 Unspecified severe protein-calorie malnutrition
CPT/HCPCS: 36415; 80053; 83735; 84100; 84134; 84478; 85025

== ENCOUNTER → 2019-02-22 | Outpatient (CLI) | payer OTHER, MEDICAID ==
[2019-02-22 12:21] LABS: BASO % 1 % (0-3); EOS # 0.2 x10^3/uL (0.0-0.7); EOS % 6 % (0-3); HEMATOCRIT 28.4 % (39.0-53.0); LYMPH # 1.4 x10^3/uL (1.0-4.8); LYMPH % 41 % (24-48); MEAN CORPUSCULAR HEMOGLOBIN 26 pg (25-35); MEAN CORPUSCULAR HGB CONC 32 g/dL (31-37); MEAN CORPUSCULAR VOLUME 82 fL (79-100); MONO # 0.4 x10^3/uL (0.0-1.1); MONO % 11 % (0-9); NEUT # 1.4 x10^3uL (1.8-7.7); NEUT % 41 % (31-73); PLATELET COUNT 199 x10^3/uL (140-400); RED BLOOD COUNT 3.47 x10^6/uL (4.30-5.70); RED CELL DISTRIBUTION WIDTH 17.7 % (11.5-14.5); WHITE BLOOD COUNT 3.5 x10^3/uL (4.0-11.0)
[2019-02-22 12:25] LABS: ALBUMIN 2.7 g/dL (3.4-5.0); ALBUMIN/GLOBULIN RATIO 0.6 (1.0-1.7); CALCIUM 8.4 mg/dL (8.5-10.1); CREATININE 2.1 mg/dL (0.7-1.3); GFR 40.3; MAGNESIUM 1.7 mg/dL (1.8-2.4); PHOSPHORUS 2.9 mg/dL (2.6-4.7); POTASSIUM 4.2 mmol/L (3.5-5.1); TOTAL BILIRUBIN 0.1 mg/dL (0.2-1.0); TOTAL PROTEIN 7.6 g/dL (6.4-8.2)
== END | disposition home or self-care (01) ==
LOC: SPEC 12:01
PROVIDERS: ATTEND Internal Medicine Gastroenterology
DX: Z43.3 Encounter for attention to colostomy (principal); I12.9 Hypertensive chronic kidney disease with stage 1 through stage 4 chronic kidney disease, or unspecified chronic kidney disease; N18.2 Chronic kidney disease, stage 2 (mild); E43 Unspecified severe protein-calorie malnutrition
CPT/HCPCS: 36415; 80053; 83735; 84100; 84134; 84478; 85025

== ENCOUNTER → 2019-03-01 | Outpatient (CLI) | payer OTHER, MEDICAID ==
[2019-03-01 12:31] LABS: BASO % 1 % (0-3); EOS # 0.2 x10^3/uL (0.0-0.7); EOS % 4 % (0-3); HEMATOCRIT 29.4 % (39.0-53.0); HEMOGLOBIN 9.1 g/dL (13.0-17.5); LYMPH # 2.1 x10^3/uL (1.0-4.8); LYMPH % 42 % (24-48); MEAN CORPUSCULAR HEMOGLOBIN 26 pg (25-35); MEAN CORPUSCULAR HGB CONC 31 g/dL (31-37); MEAN CORPUSCULAR VOLUME 83 fL (79-100); MONO # 0.6 x10^3/uL (0.0-1.1); MONO % 11 % (0-9); NEUT # 2.1 x10^3uL (1.8-7.7); NEUT % 42 % (31-73); PLATELET COUNT 233 x10^3/uL (140-400); RED BLOOD COUNT 3.55 x10^6/uL (4.30-5.70); RED CELL DISTRIBUTION WIDTH 18.5 % (11.5-14.5); WHITE BLOOD COUNT 5.1 x10^3/uL (4.0-11.0)
[2019-03-01 12:36] LABS: ALBUMIN 2.8 g/dL (3.4-5.0); ALBUMIN/GLOBULIN RATIO 0.6 (1.0-1.7); CALCIUM 8.1 mg/dL (8.5-10.1); CREATININE 2.2 mg/dL (0.7-1.3); GFR 38.2; MAGNESIUM 1.8 mg/dL (1.8-2.4); PHOSPHORUS 3.8 mg/dL (2.6-4.7); TOTAL BILIRUBIN 0.1 mg/dL (0.2-1.0); TOTAL PROTEIN 7.7 g/dL (6.4-8.2)
[2019-03-01 13:32] LABS: % ATYL 2 % (0-0); % BANDS 1 % (0-9); % EOS 3 % (0-5); % LYMPHS 42 % (24-48); % MONOS 10 % (0-10); % SEGS 42 % (35-66)
[2019-03-01 13:34] LABS: PLT ESTIMATE ADEQUATE (ADEQUATE)
[2019-03-01 13:37] LABS: POLYCHROMASIA PRESENT
[2019-03-01 13:38] LABS: ANISOCYTOSIS PRESENT; MICROCYTOSIS PRESENT
[2019-03-01 13:40] LABS: SCHISTOCYTES OCC; TEAR DROP CELLS PRESENT
== END | disposition home or self-care (01) ==
LOC: SPEC 12:08
PROVIDERS: ATTEND Internal Medicine Gastroenterology
DX: I12.9 Hypertensive chronic kidney disease with stage 1 through stage 4 chronic kidney disease, or unspecified chronic kidney disease (principal); N18.2 Chronic kidney disease, stage 2 (mild); E43 Unspecified severe protein-calorie malnutrition; Z43.3 Encounter for attention to colostomy; Z90.49 Acquired absence of other specified parts of digestive tract
CPT/HCPCS: 36415; 80053; 83735; 84100; 84134; 84478; 85007; 85025

== ENCOUNTER → 2019-03-08 | Outpatient (CLI) | payer OTHER, MEDICAID ==
[2019-03-08 12:17] LABS: BASO % 1 % (0-3); EOS # 0.2 x10^3/uL (0.0-0.7); EOS % 4 % (0-3); HEMATOCRIT 26.6 % (39.0-53.0); HEMOGLOBIN 8.3 g/dL (13.0-17.5); LYMPH # 1.4 x10^3/uL (1.0-4.8); LYMPH % 34 % (24-48); MEAN CORPUSCULAR HEMOGLOBIN 26 pg (25-35); MEAN CORPUSCULAR HGB CONC 31 g/dL (31-37); MEAN CORPUSCULAR VOLUME 84 fL (79-100); MONO # 0.5 x10^3/uL (0.0-1.1); MONO % 11 % (0-9); NEUT # 2.1 x10^3uL (1.8-7.7); NEUT % 50 % (31-73); PLATELET COUNT 218 x10^3/uL (140-400); RED BLOOD COUNT 3.17 x10^6/uL (4.30-5.70); RED CELL DISTRIBUTION WIDTH 19.1 % (11.5-14.5); WHITE BLOOD COUNT 4.1 x10^3/uL (4.0-11.0)
[2019-03-08 12:23] LABS: ALBUMIN/GLOBULIN RATIO 0.7 (1.0-1.7); CALCIUM 7.7 mg/dL (8.5-10.1); CREATININE 3.6 mg/dL (0.7-1.3); GFR 21.7; PHOSPHORUS 4.2 mg/dL (2.6-4.7); POTASSIUM 5.1 mmol/L (3.5-5.1); TOTAL BILIRUBIN 0.2 mg/dL (0.2-1.0); TOTAL PROTEIN 7.5 g/dL (6.4-8.2)
== END | disposition home or self-care (01) ==
LOC: SPEC 11:50
PROVIDERS: ATTEND Internal Medicine Gastroenterology
DX: Z43.3 Encounter for attention to colostomy (principal); I12.9 Hypertensive chronic kidney disease with stage 1 through stage 4 chronic kidney disease, or unspecified chronic kidney disease; N18.2 Chronic kidney disease, stage 2 (mild); E43 Unspecified severe protein-calorie malnutrition
CPT/HCPCS: 36415; 80053; 83735; 84100; 84134; 84478; 85025

== ENCOUNTER → 2019-03-15 | Outpatient (CLI) | payer OTHER, MEDICAID ==
[2019-03-15 11:42] LABS: ALBUMIN 2.6 g/dL (3.4-5.0); ALBUMIN/GLOBULIN RATIO 0.6 (1.0-1.7); CALCIUM 8.2 mg/dL (8.5-10.1); CREATININE 2.6 mg/dL (0.7-1.3); GFR 31.5; MAGNESIUM 1.8 mg/dL (1.8-2.4); PHOSPHORUS 3.3 mg/dL (2.6-4.7); POTASSIUM 4.3 mmol/L (3.5-5.1); TOTAL BILIRUBIN 0.1 mg/dL (0.2-1.0); TOTAL PROTEIN 7.1 g/dL (6.4-8.2)
[2019-03-15 11:49] LABS: BASO % 0 % (0-3); EOS # 0.3 x10^3/uL (0.0-0.7); EOS % 6 % (0-3); HEMATOCRIT 26.6 % (39.0-53.0); HEMOGLOBIN 8.2 g/dL (13.0-17.5); LYMPH # 1.5 x10^3/uL (1.0-4.8); LYMPH % 33 % (24-48); MEAN CORPUSCULAR HEMOGLOBIN 26 pg (25-35); MEAN CORPUSCULAR HGB CONC 31 g/dL (31-37); MEAN CORPUSCULAR VOLUME 84 fL (79-100); MONO # 0.5 x10^3/uL (0.0-1.1); MONO % 11 % (0-9); NEUT # 2.2 x10^3uL (1.8-7.7); NEUT % 50 % (31-73); PLATELET COUNT 220 x10^3/uL (140-400); RED BLOOD COUNT 3.15 x10^6/uL (4.30-5.70); RED CELL DISTRIBUTION WIDTH 18.5 % (11.5-14.5); WHITE BLOOD COUNT 4.5 x10^3/uL (4.0-11.0)
== END | disposition home or self-care (01) ==
LOC: SPEC 10:44
PROVIDERS: ATTEND Internal Medicine Gastroenterology
DX: I12.9 Hypertensive chronic kidney disease with stage 1 through stage 4 chronic kidney disease, or unspecified chronic kidney disease (principal); N18.2 Chronic kidney disease, stage 2 (mild); E43 Unspecified severe protein-calorie malnutrition; Z90.49 Acquired absence of other specified parts of digestive tract
CPT/HCPCS: 36415; 80053; 83735; 84100; 84134; 84478; 85025

== ENCOUNTER → 2019-03-22 | Outpatient (CLI) | payer OTHER, MEDICAID ==
[2019-03-22 11:34] LABS: BASO % 1 % (0-3); EOS # 0.2 x10^3/uL (0.0-0.7); EOS % 5 % (0-3); HEMATOCRIT 25.6 % (39.0-53.0); LYMPH # 1.3 x10^3/uL (1.0-4.8); LYMPH % 36 % (24-48); MEAN CORPUSCULAR HEMOGLOBIN 26 pg (25-35); MEAN CORPUSCULAR HGB CONC 31 g/dL (31-37); MEAN CORPUSCULAR VOLUME 82 fL (79-100); MONO # 0.5 x10^3/uL (0.0-1.1); MONO % 15 % (0-9); NEUT # 1.6 x10^3uL (1.8-7.7); NEUT % 44 % (31-73); PLATELET COUNT 225 x10^3/uL (140-400); RED CELL DISTRIBUTION WIDTH 18.1 % (11.5-14.5); WHITE BLOOD COUNT 3.7 x10^3/uL (4.0-11.0)
[2019-03-22 11:45] LABS: ALBUMIN 2.8 g/dL (3.4-5.0); ALBUMIN/GLOBULIN RATIO 0.6 (1.0-1.7); CREATININE 2.9 mg/dL (0.7-1.3); GFR 27.8; PHOSPHORUS 3.9 mg/dL (2.6-4.7); POTASSIUM 5.1 mmol/L (3.5-5.1); TOTAL BILIRUBIN 0.1 mg/dL (0.2-1.0); TOTAL PROTEIN 7.6 g/dL (6.4-8.2)
== END | disposition home or self-care (01) ==
LOC: SPEC 11:17
PROVIDERS: ATTEND Internal Medicine Gastroenterology
DX: I12.9 Hypertensive chronic kidney disease with stage 1 through stage 4 chronic kidney disease, or unspecified chronic kidney disease (principal); N18.2 Chronic kidney disease, stage 2 (mild); E43 Unspecified severe protein-calorie malnutrition; Z43.3 Encounter for attention to colostomy
CPT/HCPCS: 36415; 80053; 83735; 84100; 84134; 84478; 85025

== ENCOUNTER → 2019-03-30 | Outpatient (CLI) | payer OTHER, MEDICAID ==
[2019-03-30 12:37] LABS: ALBUMIN 2.3 g/dL (3.4-5.0); ALBUMIN/GLOBULIN RATIO 0.4 (1.0-1.7); CALCIUM 8.5 mg/dL (8.5-10.1); CREATININE 2.8 mg/dL (0.7-1.3); GFR 28.9; MAGNESIUM 1.8 mg/dL (1.8-2.4); PHOSPHORUS 3.6 mg/dL (2.6-4.7); POTASSIUM 5.6 mmol/L (3.5-5.1); TOTAL BILIRUBIN 0.2 mg/dL (0.2-1.0); TOTAL PROTEIN 8.3 g/dL (6.4-8.2)
[2019-03-30 12:39] LABS: BASO % 0 % (0-3); EOS # 0.1 x10^3/uL (0.0-0.7); EOS % 1 % (0-3); HEMATOCRIT 33.8 % (39.0-53.0); HEMOGLOBIN 10.4 g/dL (13.0-17.5); LYMPH # 1.9 x10^3/uL (1.0-4.8); LYMPH % 22 % (24-48); MEAN CORPUSCULAR HEMOGLOBIN 25 pg (25-35); MEAN CORPUSCULAR HGB CONC 31 g/dL (31-37); MEAN CORPUSCULAR VOLUME 83 fL (79-100); MONO # 1.5 x10^3/uL (0.0-1.1); MONO % 17 % (0-9); NEUT # 4.9 x10^3uL (1.8-7.7); NEUT % 59 % (31-73); PLATELET COUNT 295 x10^3/uL (140-400); RED BLOOD COUNT 4.09 x10^6/uL (4.30-5.70); RED CELL DISTRIBUTION WIDTH 17.9 % (11.5-14.5); WHITE BLOOD COUNT 8.4 x10^3/uL (4.0-11.0)
[2019-04-04 23:06] LABS: VITAMIN E(ALPHA TOCOPHEROL) 3.2 mg/L (7.0-25.1); VITAMIN E(GAMMA TOCOPHEROL) 2.2 mg/L (0.5-5.5)
== END | disposition home or self-care (01) ==
LOC: SPEC 12:05
PROVIDERS: ATTEND Internal Medicine Gastroenterology
DX: I12.9 Hypertensive chronic kidney disease with stage 1 through stage 4 chronic kidney disease, or unspecified chronic kidney disease (principal); N18.2 Chronic kidney disease, stage 2 (mild); E43 Unspecified severe protein-calorie malnutrition; Z43.3 Encounter for attention to colostomy
CPT/HCPCS: 36415; 80053; 82306; 82525; 83540; 83550; 83735; 84100; 84134; 84425; 84446; 84478; 84590; 84630; 85025

== ENCOUNTER → 2019-04-26 | Outpatient (CLI) | payer MEDICARE, MEDICAID ==
[2019-04-26 13:04] LABS: BASO % 1 % (0-3); EOS # 0.2 x10^3/uL (0.0-0.7); EOS % 4 % (0-3); HEMOGLOBIN 9.5 g/dL (13.0-17.5); LYMPH % 41 % (24-48); MEAN CORPUSCULAR HEMOGLOBIN 25 pg (25-35); MEAN CORPUSCULAR HGB CONC 32 g/dL (31-37); MEAN CORPUSCULAR VOLUME 80 fL (79-100); MONO # 0.3 x10^3/uL (0.0-1.1); MONO % 6 % (0-9); NEUT # 2.3 x10^3uL (1.8-7.7); NEUT % 49 % (31-73); PLATELET COUNT 322 x10^3/uL (140-400); RED BLOOD COUNT 3.73 x10^6/uL (4.30-5.70); RED CELL DISTRIBUTION WIDTH 18.4 % (11.5-14.5); WHITE BLOOD COUNT 4.8 x10^3/uL (4.0-11.0)
[2019-04-26 13:15] LABS: ALBUMIN 2.8 g/dL (3.4-5.0); ALBUMIN/GLOBULIN RATIO 0.5 (1.0-1.7); CALCIUM 7.8 mg/dL (8.5-10.1); CREATININE 3.7 mg/dL (0.7-1.3); MAGNESIUM 1.4 mg/dL (1.8-2.4); PHOSPHORUS 3.5 mg/dL (2.6-4.7); POTASSIUM 5.1 mmol/L (3.5-5.1); TOTAL BILIRUBIN 0.2 mg/dL (0.2-1.0); TOTAL PROTEIN 7.9 g/dL (6.4-8.2)
== END | disposition home or self-care (01) ==
LOC: SPEC 12:40
PROVIDERS: ATTEND Internal Medicine Gastroenterology
DX: Z43.3 Encounter for attention to colostomy (principal); I12.9 Hypertensive chronic kidney disease with stage 1 through stage 4 chronic kidney disease, or unspecified chronic kidney disease; E43 Unspecified severe protein-calorie malnutrition; N18.2 Chronic kidney disease, stage 2 (mild)
CPT/HCPCS: 36415; 80053; 83735; 84100; 84134; 84478; 85025

== ENCOUNTER 2019-06-02 19:16 | Emergency (ER) | payer MEDICARE, MEDICAID ==
[~2019-06-02] VITALS: Ht 170.2 cm; Wt 64.3 kg
--- NOTE | 2019-06-02 19:21 | PHYS DOC ---
Past History Past Medical History: Anemia, DVT, Hypertension, IBS, Prostatitis, Renal Disease, Other Additional Past Medical Histor: Crohn's disease Past Medical History Hyperkalemia Past Surgical History: Other Alcohol Use: None Drug Use: Marijuana Adult General Chief Complaint Chief Complaint: ".. I got this pic line.. and sometime they left a message on my phone.. they told me to go to emergency room because my potassium as too high..." HPI HPI Patient is a 53 year old male who presents with above hx and complaints of post surgery problems and lab abnormalities. Pt. follows with Dr. Rasmussen. Patient has been followed at medical clinic's, nephrology and GI clinics. Patient had a PICC line placed today. Upon returning home he had a message to go to emergency room because critical lab values. Patient has had multiple medical issues anemia, Crohn's, deconditioning, renal insufficiency, His mother is at bedside Review of Systems Review of Systems Constitutional: Denies fever or chills [] Eyes: Denies change in visual acuity, redness, or eye pain [] HENT: Denies nasal congestion or sore throat [] Respiratory: Complaints of chronic cough and shortness of breath [] Cardiovascular: No additional information not addressed in HPI [] GI: Complaints of chronic abdominal pain, nausea. Denies, vomiting, bloody stools or diarrhea [] : Denies dysuria or hematuria [] Musculoskeletal: Denies back pain or joint pain []complaints of generalized weakness Integument: Denies rash or skin lesions [] Neurologic: Denies headache, focal weakness or sensory changes [] Endocrine: Denies polyuria or polydipsia [] All other systems were reviewed and found to be within normal limits, except as documented in this note. Family History Family History Noncontributory Current Medications Current Medications See nursing for home meds Allergies Allergies Allergies Coded Allergies Type Severity Reaction Last Updated Verified No Known Drug Allergies 11/25/16 No Physical Exam Physical Exam Constitutional: Chronically ill and appearance. [] HENT: Normocephalic, atraumatic, bilateral external ears normal, oropharynx moist, no oral exudates, nose normal. [] Eyes: PERRLA, EOMI, conjunctiva pale, no discharge. [] Neck: Normal range of motion, no tenderness, supple, no stridor. [] Cardiovascular:Heart rate tachycardia to bradycardia, rhythm intermittently irregular, no murmur, PMI to the left Lungs & Thorax: Bilateral breath sounds equal apex with scattered wheezes and basilar crackles auscultation [Has]scar on right sided chest wall Abdomen: Bowel sounds normal, soft, generalized tenderness, no masses, no pulsatile masses. Old surgery scars. Skin: Warm, dry, no erythema, no rash. Dressing over right arm where the pic placed Back: No tenderness, no CVA tenderness. [] Extremities: No tenderness, no cyanosis, no clubbing, ROM intact, no edema. [] Neurologic: Alert and oriented X 3, normal motor function, normal sensory func tion, no focal deficits noted. [] Psychologic: Affect anxious, argumentative, judgement seems to lack unde rstanding about his underlying medical issues, mood normal. Generally uncooperative with nursing staff and his evaluation. EKG EKG My interpretation EKG shows a sinus rhythm at 67 bpm. Some mild peaking of T waves in V2 and 3. Does have some hyperdynamic affect.[]2002 hrs. I interpretation of second follow-up EKG shows a sinus bradycardia at 51 bpm there is some decreased peaking in T waves V2 and 3. 0049 hrs. Radiology/Procedures Radiology/Procedures [][place] [address] IMAGING REPORT Signed PATIENT: CHRISTIAN LOPEZ ACCOUNT: [id number] : 1965 LOCATION: ER AGE: 53 SEX: M EXAM STATUS: REG ER ORD. PHYSICIAN: PHILIPPE EPPS MD REASON: Pic line placement earlier today at [facility], elevated potassium, abn l PROCEDURE: CHEST PA & LATERAL CHEST PA LATERAL INDICATION: Line placement, abnormal laboratory values. COMPARISON STUDY: 02/10/2018. FINDINGS: Left IJ Port-A-Cath with tip terminating at the superior cavoatrial junction. Lungs: Normal lung volume. No pulmonary mass or consolidation. The tracheobronchial tree and hilar structures are normal. Pleura: No pleural effusion or pneumothorax. Heart and Mediastinum: The cardiomediastinal silhouette is normal. The great vessels of the thorax are normal. IMPRESSION: No acute cardiopulmonary process. Left IJ Port-A-Cath. Electronically signed by: Edie Campuzano MD (06/02/2019 8:49 PM) [id number] DICTATED AND SIGNED BY: EDIE CAMPUZANO MD DATE: 06/02/192048 CC: PHILIPPE EPPS MD; LASHONDA Tracy,ALONDRA DE LEÓN ~ Course & Med Decision Making Course & Med Decision Making Pertinent Labs and Imaging studies reviewed. (See chart for details) Discussed patient's presentation testing and treatment plan with transfer Transfer center advised will accept pt. at , pending repeat potassium level. To call results to [phone]. Impression: 1. Critical hyperkalemia-6.7 2. Anemia 7.6 hemoglobin 3. Elevated creatinine 3.1 4. History of Crohn's 5. DM- Critical Care- 90 min. [] Dragon Disclaimer Dragon Disclaimer This electronic medical record was generated, in whole or in part, using a voice recognition dictation system. Departure Departure: Disposition: 01 HOME/RESIDENCE PRIOR TO ADM Condition: STABLE Referrals: LASHONDA Tracy,ALONDRA DE LEÓN (PCP) Dragon Disclaimer This chart was dictated in whole or in part using Voice Recognition software in a busy, high-work load, and often noisy Emergency Department environment. It may contain unintended and wholly unrecognized errors or omissions. Dragon Disclaimer This chart was dictated in whole or in part using Voice Recognition software in a busy, high-work load, and often noisy Emergency Department environment. It may contain unintended and wholly unrecognized errors or omissions. PHILIPPE EPPS MD Jun 02, 2019 19:21
[2019-06-02] MEDS ORDERED: IV NORMAL SALINE 1,000ML 1,000 ML IV SCH (19:44)
[2019-06-02] MEDS ORDERED: SODIUM BICARBONATE 50 MEQ/50 ML VIAL. IV ONE (20:00)
[2019-06-02 20:40] LABS: BASO % 0 % (0-3); EOS # 0.2 x10^3/uL (0.0-0.7); EOS % 3 % (0-3); HEMATOCRIT 25.4 % (39.0-53.0); HEMOGLOBIN 7.6 g/dL (13.0-17.5); LYMPH # 1.6 x10^3/uL (1.0-4.8); LYMPH % 27 % (24-48); MEAN CORPUSCULAR HEMOGLOBIN 27 pg (25-35); MEAN CORPUSCULAR HGB CONC 30 g/dL (31-37); MEAN CORPUSCULAR VOLUME 88 fL (79-100); MONO # 0.5 x10^3/uL (0.0-1.1); MONO % 8 % (0-9); NEUT # 3.7 x10^3uL (1.8-7.7); NEUT % 63 % (31-73); PLATELET COUNT 273 x10^3/uL (140-400); RED BLOOD COUNT 2.87 x10^6/uL (4.30-5.70); RED CELL DISTRIBUTION WIDTH 21.1 % (11.5-14.5)
[2019-06-02 20:41] LABS: CALCIUM 7.7 mg/dL (8.5-10.1); CREATININE 3.1 mg/dL (0.7-1.3); GFR 25.7
[2019-06-02 20:47] LABS: POTASSIUM 6.2 mmol/L (3.5-5.1)
--- NOTE | 2019-06-02 20:52 | RAD ---
CHEST PA LATERAL INDICATION: Line placement, abnormal laboratory values. COMPARISON STUDY: 02/10/2018. FINDINGS: Left IJ Port-A-Cath with tip terminating at the superior cavoatrial junction. Lungs: Normal lung volume. No pulmonary mass or consolidation. The tracheobronchial tree and hilar structures are normal. Pleura: No pleural effusion or pneumothorax. Heart and Mediastinum: The cardiomediastinal silhouette is normal. The great vessels of the thorax are normal. IMPRESSION: No acute cardiopulmonary process. Left IJ Port-A-Cath. Electronically signed by: Aman Campuzano MD (06/02/2019 8:49 PM) [id number]
[2019-06-02 22:00] LABS: BARBITURATES NEG (NEG); BENZODIAZEPINES POS (NEG); CANNABINOIDS NEG (NEG); COCAINE NEG (NEG); METHADONE NEG (NEG); OPIATES NEG (NEG); PHENCYCLIDINE NEG (NEG)
[2019-06-02] MEDS ORDERED: INSULIN REGULAR 100 UNIT/ML 3ML VIAL. IV ONE (22:00)
[2019-06-02] MEDS ORDERED: IPRATRPIUM/ALBUTEROL 0.5/2.5MG 3 ML NEBU. NEB ONE (22:00)
[2019-06-02] MEDS ORDERED: CALCIUM CHLORIDE 1,000 MG/10 ML DISP.SYRIN IV ONE (22:00)
[2019-06-02] MEDS ORDERED: DEXTROSE 50% 25 GM / 50ML DISP.SYRIN. IV ONE (22:00)
[2019-06-02] MEDS ORDERED: FUROSEMIDE 40 MG/4 ML VIAL IVP ONE (22:00)
[2019-06-02 22:09] LABS: ANISOCYTOSIS SLIGHT; HYPOCHROMIA SLIGHT; MICROCYTOSIS SLIGHT; PLT ESTIMATE ADEQUATE (ADEQUATE); SCHISTOCYTES OCC; SPHEROCYTES OCC
[2019-06-02 22:10] LABS: AMPHETAMINE/METHAMPHETAMINE NEG (NEG)
--- NOTE | 2019-06-02 22:10 | EKG ---
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
[2019-06-03] MEDS ORDERED: FUROSEMIDE 40 MG/4 ML VIAL IVP ONE (00:30)
[2019-06-03 01:02] LABS: POTASSIUM 5.1 mmol/L (3.5-5.1)
[2019-06-03] MEDS ORDERED: BUMETANIDE 1 MG/4 ML VIAL. ONE (01:33)
[2019-06-03] MEDS ORDERED: ATROPINE 0.5 MG/5 ML DISP.SYRIN. IV PRN (01:45)
[2019-06-03 02:00] VITALS: BP 132/69
--- NOTE | 2019-06-03 05:33 | EKG ---
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
[2019-06-03] MEDS ORDERED: BUMETANIDE 1 MG/4 ML VIAL. IVP SCH (09:00)
== END 2019-06-03 02:15 | disposition home or self-care (01) ==
LOC: ER 19:16
DX: E87.5 Hyperkalemia (principal); D64.9 Anemia, unspecified; R94.4 Abnormal results of kidney function studies; E11.9 Type 2 diabetes mellitus without complications; I10 Essential (primary) hypertension
CPT/HCPCS: 36415; 71046; 80048; 80051; 80307; 85025; 93005; 94640; 96374; 96375; 96376; 99285; J1815; J1940; J3490; J7620; J7030

== ENCOUNTER 2020-04-03 11:07 | Emergency (ER) | payer MEDICARE, MEDICAID ==
[~2020-04-03] VITALS: Ht 170.2 cm; Wt 64.3 kg
--- NOTE | 2020-04-03 11:25 | PHYS DOC ---
Past History Past Medical History: Anemia, DVT, Hypertension, IBS, Prostatitis, Renal Disease, Other Additional Past Medical Histor: Crohn's disease Past Surgical History: Other Additional Past Surgical Histo: COLOSTOMY LEFT Alcohol Use: None Drug Use: Marijuana General Adult EDM: Chief Complaint: LOWER BACK PAIN OR INJURY HPI: HPI: Patient is a 54-year-old male who arrives via EMS with a chief complaint of back pain. Patient has a history of chronic back pain and yesterday began having exacerbation of his pain. Patient describes 10 out of 10 sharp lumbar back pain that does not radiate. Patient denies any recent trauma. Patient denies any fevers, chills, cough or shortness of breath. Patient denies any radiation to the legs. Patient denies any bowel or bladder incontinence. Patient does have a ostomy in his abdomen denies any abdominal pain. Patient denies any change in output of his ostomy. Review of Systems: Review of Systems: Constitutional: Denies fever or chills Eyes: Denies change in visual acuity HENT: Denies nasal congestion or sore throat Respiratory: Denies cough or shortness of breath Cardiovascular: Denies chest pain but has chronic edema in his legs GI: Denies abdominal pain, nausea, vomiting, bloody stools or diarrhea : Denies dysuria Musculoskeletal: Complains of back pain but no joint pain Integument: Denies rash Neurologic: Denies headache, focal weakness or sensory changes Endocrine: Denies polyuria or polydipsia Lymphatic: Denies swollen glands Psychiatric: Denies depression or anxiety Current Medications: Current Meds: Current Medications Diazepam (Valium) 10 mg 1X ONCE PO Last administered on 04/03/20at 11:38; Start 04/03/20 at 11:30; Stop 04/03/20 at 11:31; Status DC Oxycodone/ Acetaminophen (Percocet 10/325) 1 tab 1X ONCE PO Last administered on 04/03/20at 11:39; Start 04/03/20 at 11:30; Stop 04/03/20 at 11:31; Status DC Active Scripts Active Reported Ferrous Sulfate 325 Mg Tablet 1 Tab PO BID Nexium Capsule (Esomeprazole Magnesium) 20 Mg Capsule.dr 1 Cap PO BID Tamsulosin Hcl 0.4 Mg Cap.er.24h 1 Cap PO DAILY Allergies: Allergies: Allergies Coded Allergies Type Severity Reaction Last Updated Verified No Known Drug Allergies 11/25/16 No Physical Exam: PE: Constitutional: Well developed, well nourished, anxious HENT: Normocephalic, atraumatic, bilateral external ears normal, oropharynx moist, no oral exudates, nose normal. [] Eyes: PERRLA, EOMI, conjunctiva normal, no discharge. [] Neck: Normal range of motion, no tenderness, supple, no stridor. [] Cardiovascular:Heart rate regular rhythm, peripheral pulses are intact cap refill is brisk Lungs & Thorax: Bilateral breath sounds clear, no respiratory distress Abdomen: Ostomy is patent and the abdomen, mild abdominal distention without tenderness no pulsatile masses Skin: Warm, dry, no erythema, no rash. [] Back: Limited range of motion due to pain, mild tenderness to lumbar spine Extremities: No tenderness, no cyanosis, no clubbing, ROM intact, 1+ bilateral lower extremity edema Neurologic: Alert and oriented X 3, normal motor function, normal sensory function, no focal deficits noted. [] Dorsiflexion of the great toes intact bilateral lower extremity, no saddle anesthesia Psychologic: Anxious Current Patient Data: Vital Signs: Vital Signs Date Time Temp Pulse Resp B/P (MAP) Pulse Ox O2 Delivery O2 Flow Rate FiO2 04/03/20 11:10 97.6 81 20 150/99 (116) 98 Room Air EKG: EKG: [] Radiology/Procedures: Radiology/Procedures: [][place] [address] IMAGING REPORT Signed PATIENT: CHRISTIAN LOPEZ ACCOUNT: [id number] : 1965 LOCATION: ER AGE: 54 SEX: M EXAM STATUS: REG ER ORD. PHYSICIAN: CRISTY RABAGO MD REASON: LOW BACK PAIN PROCEDURE: CT LUMBAR SPINE WO CONTRAST CT scan of the lumbar spine without contrast 04/03/2020 CLINICAL HISTORY: Low back pain. TECHNIQUE: Unenhanced, contiguous, 0.625 mm axial sections were obtained through the lumbar spine. 3 mm reconstructed sagittal, axial and coronal images were obtained. One or more of the following individualized dose reduction techniques were utilized for this study: 1. Automated exposure control. 2. Adjustment of the mA and/or kV according to patient size. 3. Use of iterative reconstruction technique. FINDINGS: Images from the study are degraded by patient motion. Sagittal and coronal reconstructed images demonstrate mild S-shaped curvature of the thoracolumbar spine. Degenerative changes consisting of varying degrees of vertebral endplate sclerosis and minimal anterior vertebral body osteophyte formation are seen throughout the lumbar disc spaces. Disc space narrowing is seen at L5-S1. An IVC filter is noted in place. No fracture or subluxation of the lumbar vertebrae is seen. The changes of degenerative disc disease are seen involving the mid and lower lumbar disc spaces. These consist of minimal to mild generalized disc bulges, degenerative changes involving the facet joints and mild ligamentum flavum hypertrophy. These findings do not result in definite areas of significant central spinal canal or neural foraminal stenosis. IMPRESSION: The changes of degenerative disc disease are seen throughout the lumbar spine. These findings do not result in definite areas of significant central spinal canal or neural foraminal stenosis at any level. Electronically signed by: Luis Zepeda MD (04/03/2020 12:50 PM) [id number] DICTATED AND SIGNED BY: LUIS ZEPEDA MD DATE: 04/03/20 1244 CC: CRISTY RABAGO MD; ALONDRA GALLEGO M.D. ~MTH0 0 Heart Score: Risk Factors: Risk Factors: DM, Current or recent (<one month) smoker, HTN, HLP, family history of CAD, obesity. Risk Scores: Score 0 - 3: 2.5% MACE over next 6 weeks - Discharge Home Score 4 - 6: 20.3% MACE over next 6 weeks - Admit for Clinical Observation Score 7 - 10: 72.7% MACE over next 6 weeks - Early Invasive Strategies Course & Med Decision Making: Course & Med Decision Making Pertinent Labs and Imaging studies reviewed. (See chart for details) [] Patient reassessed at 1:15 PM and significantly much better. Patient's not vomiting and states his pain is significantly proved. 54-year-old male presents with exacerbation of his chronic back pain. Patient is neurologically intact has no signs of cauda equina. Imaging shows no acute pathology. Patient has no fever or redness to the back or history IV drug use to suggest epidural abscess. Dragon Disclaimer: Dragon Disclaimer: This electronic medical record was generated, in whole or in part, using a voice recognition dictation system. Departure Departure: Impression: Primary Impression: Acute exacerbation of chronic low back pain Disposition: 01 DC HOME SELF CARE/HOMELESS Condition: STABLE Referrals: LASHONDA Tracy,ALONDRA DE LEÓN (PCP) 2-3 days Patient Instructions: Back Pain, Adult Additional Instructions: EMERGENCY DEPARTMENT GENERAL DISCHARGE INSTRUCTIONS THANK YOU for coming to [facility] Emergency Department (ED) today and trusting us with your care. We trust that you had a positive experience in our Emergency Department. If you wish to speak to the department Management you can contact the natural sciences department chair at . YOUR FOLLOW UP INSTRUCTIONS ARE FOLLOWS: Do you have a private doctor? If you do not have a private doctor, please ask for a resource list of physicians or clinics that may be able to assist you with follow up care. The Emergency Physician has interpreted your x-rays. The X-ray specialist will also review them. If there is a change in the findings you will be notified in 48 hours when at all possible. A lab test or lab culture may have been done, your results will be reviewed and you will be notified if you need a change in treatment. ADDITIONAL INSTRUCTIONS AND INFORMATION Your care today has been supervised by a physician who is specially trained in emergency care. Many problems require more than one evaluation for a complete diagnosis and treatment. We recommend that you schedule your follow up appointment as recommended to ensure complete treatment of your illness or injury. If you are unable to obtain follow up care and continue to have a problem, or if your condition worsens we recommend that you return to the ED. We are not able to safely determine your condition over the phone nor are we able to give sound medical advice over the phone. For these safety reasons, if you call for medical advice we will ask you to come to the ED for further evaluation If you have any questions regarding these discharge instructions please call the ED at . SAFETY INFORMATION In the interest of safety, wellness, and injury prevention; we encourage you to wear your seatbelt, if you smoke; quit smoking, and we encourage your family to use protective helmet for bicycling and other sporting events that present an increased risk for head injury. IF YOUR SYMPTOMS WORSEN OR NEW SYMPTOMS DEVELOP, OR YOU HAVE CONCERNS ABOUT YOUR CONDITION; OR IF YOUR CONDITION WORSENS WHILE YOU ARE WAITING FOR YOUR FOLLOW UP APPOINTMENT; EITHER CONTACT YOUR PRIMARY CARE DOCTOR, THE PHYSICIAN WHOSE NAME AND NUMBER YOU WERE GIVEN, OR RETURN TO THE ED IMMEDIATELY. Scripts Diazepam (VALIUM) 5 Mg Tablet 5 MG PO TID for back spasm, #15 TAB Prov: CRISTY RABAGO MD 04/03/20 CRISTY RABAGO MD Apr 03, 2020 11:25
[2020-04-03] MEDS ORDERED: oxyCODONE/APAP 10/325 1 TAB TABLET PO ONE (11:30)
[2020-04-03] MEDS ORDERED: diazePAM 5 MG TABLET. PO ONE (11:30)
--- NOTE | 2020-04-03 12:52 | RAD ---
CT scan of the lumbar spine without contrast 04/03/2020 CLINICAL HISTORY: Low back pain. TECHNIQUE: Unenhanced, contiguous, 0.625 mm axial sections were obtained through the lumbar spine. 3 mm reconstructed sagittal, axial and coronal images were obtained. One or more of the following individualized dose reduction techniques were utilized for this study: 1. Automated exposure control. 2. Adjustment of the mA and/or kV according to patient size. 3. Use of iterative reconstruction technique. FINDINGS: Images from the study are degraded by patient motion. Sagittal and coronal reconstructed images demonstrate mild S-shaped curvature of the thoracolumbar sp ine. Degenerative changes consisting of varying degrees of vertebral endplate sclerosis and minimal a nterior vertebral body osteophyte formation are seen throughout the lumbar disc spaces. Disc space na rrowing is seen at L5-S1. An IVC filter is noted in place. No fracture or subluxation of the lumbar vertebrae is seen. The changes of degenerative disc disease are seen involving the mid and lower lumbar disc spaces. The se consist of minimal to mild generalized disc bulges, degenerative changes involving the facet joint s and mild ligamentum flavum hypertrophy. These findings do not result in definite areas of significa nt central spinal canal or neural foraminal stenosis. IMPRESSION: The changes of degenerative disc disease are seen throughout the lumbar spine. These find ings do not result in definite areas of significant central spinal canal or neural foraminal stenosis at any level. Electronically signed by: Luis Zepeda MD (04/03/2020 12:50 PM) [id number]
[2020-04-03 13:12] VITALS: BP 151/90
[2020-04-03] MEDS ORDERED: DIAZ5TAB PO (13:23)
== END 2020-04-03 13:35 | disposition home or self-care (01) ==
LOC: ER 11:07
DX: G89.29 Other chronic pain (principal); M54.5 Low back pain; R60.0 Localized edema; I10 Essential (primary) hypertension; N28.9 Disorder of kidney and ureter, unspecified; F12.90 Cannabis use, unspecified, uncomplicated; Z98.890 Other specified postprocedural states; Z90.89 Acquired absence of other organs; Z86.718 Personal history of other venous thrombosis and embolism
CPT/HCPCS: 72131; 99284

== ENCOUNTER 2020-05-24 12:37 | Emergency (ER) | payer MEDICARE, MEDICAID ==
[~2020-05-24] VITALS: Ht 167.6 cm; Wt 67.0 kg
[~2020-05-24 12:37] MED LIST changes: +DIAZ5TAB PO
[2020-05-24 13:30] LABS: HEMATOCRIT 26.7 % (39.0-53.0); HEMOGLOBIN 8.3 g/dL (13.0-17.5)
[2020-05-24 13:56] VITALS: BP 147/95
--- NOTE | 2020-05-24 13:57 | PHYS DOC ---
Past History Past Medical History: Hypertension Additional Past Medical Histor: osteoprosis, crohns disease Past Surgical History: No Surgical History Additional Past Surgical Histo: COLOSTOMY LEFT Alcohol Use: None Drug Use: Marijuana Adult General Chief Complaint Chief Complaint: ABNORMAL LABS [facility] HPI Patient is a 54-year-old male patient presents with abnormal lab findings. Patient reports he had been called by home health this morning regarding one of his blood tested being abnormal, reports it was "43" and he was informed he may need a blood transfusion. Reports he had just received a blood transfusion done last week and does not believe it is related to that. Reports he feels just fine, denies any fatigue, denies malaise, denies any dyspnea. States no recent illness. States he has been taking his Coumadin. Reports the blood was taken a couple days ago, and he is wondering why he was just being called today. Does report he has history of chronic anemia for which he receives blood transfusions Review of Systems Review of Systems Constitutional: Denies fever or chills [] Eyes: Denies change in visual acuity, redness, or eye pain [] HENT: Denies nasal congestion or sore throat [] Respiratory: Denies cough or shortness of breath [] Cardiovascular: No additional information not addressed in HPI [] GI: Denies abdominal pain, nausea, vomiting, bloody stools or diarrhea [] : Denies dysuria or hematuria [] Musculoskeletal: Denies back pain or joint pain [] Integument: Denies rash or skin lesions [] Neurologic: Denies headache, focal weakness or sensory changes [] Endocrine: Denies polyuria or polydipsia [] All other systems were reviewed and found to be within normal limits, except as documented in this note. Allergies Allergies Allergies Coded Allergies Type Severity Reaction Last Updated Verified No Known Drug Allergies 11/25/16 No Physical Exam Physical Exam Constitutional: Well developed, well nourished, no acute distress, non-toxic appearance. [] Appears older than stated age HENT: Normocephalic, atraumatic, bilateral external ears normal, oropharynx moist, no oral exudates, nose normal. [] Eyes: PERRLA, EOMI, conjunctiva normal, no discharge. [] Neck: Normal range of motion, no tenderness, supple, no stridor. [] Cardiovascular:Heart rate regular rhythm, no murmur [] Lungs & Thorax: Bilateral breath sounds clear to auscultation [] Abdomen: Bowel sounds normal, soft, no tenderness, no masses, no pulsatile masses. [] Skin: Warm, dry, no erythema, no rash. [] Back: No tenderness, no CVA tenderness. [] Extremities: No tenderness, no cyanosis, no clubbing, ROM intact, no edema. [] Neurologic: Alert and oriented X 3, normal motor function, normal sensory function, no focal deficits noted. [] Psychologic: Affect normal, judgement normal, mood normal. [] Current Patient Data Vital Signs Vital Signs Date Time Temp Pulse Resp B/P (MAP) Pulse Ox O2 Delivery O2 Flow Rate FiO2 05/24/20 13:01 98.1 79 16 155/95 (115) 99 Room Air Lab Results Laboratory Tests Test 05/24/20 13:17 Hemoglobin 8.3 g/dL (13.0-17.5) L Hematocrit 26.7 % (39.0-53.0) L EKG EKG [] Radiology/Procedures Radiology/Procedures [] Heart Score Risk Factors: Risk Factors: DM, Current or recent (<one month) smoker, HTN, HLP, family history of CAD, obesity. Risk Scores: Risk Factors: DM, Current or recent (<one month) smoker, HTN, HLP, family history of CAD, obesity. Course & Med Decision Making Course & Med Decision Making Pertinent Labs and Imaging studies reviewed. (See chart for details) [] Reviewed results patient, with no acute concerning findings on labs today. Advised patient to continue his normal routine, his INR could have adjusted over the last couple days since his labs were drawn earlier as he reports. Hemoglobin is stable today, improved from his prior visit of 7.6, with patient having no complaints and no fatigue or weakness today. Patient continues to follow-up with his primary care provider. Patient agreed with this plan with no further questions Dragon Disclaimer Dragon Disclaimer This electronic medical record was generated, in whole or in part, using a voice recognition dictation system. Departure Departure: Impression: Primary Impression: Chronic anemia Additional Impressions: Feared complaint without diagnosis Chronic renal insufficiency Disposition: 01 DC HOME SELF CARE/HOMELESS Condition: GOOD Referrals: LASHONDA Tracy,ALONDRA DE LEÓN (PCP) Patient Instructions: Anemia, FAQs Additional Instructions: As we discussed, your hemoglobin was improved today at 8.3. Your INR today was within normal limits of where it should be. Continue to take your medications as you have been, continue to follow-up with primary care as needed. There was no findings today suggesting that you would need a blood transfusion. Problem Qualifiers Additional Impressions: Chronic renal insufficiency Chronic kidney disease stage: unspecified stage Qualified Codes: N18.9 - Chronic kidney disease, unspecified NEEMA LEMA APRN May 24, 2020 13:57
[2020-05-24 14:28] LABS: CREATININE 2.4 mg/dL (0.7-1.3); GFR 34.4; POTASSIUM 4.5 mmol/L (3.5-5.1)
== END 2020-05-24 15:19 | disposition home or self-care (01) ==
LOC: ER 12:37
DX: D64.89 Other specified anemias (principal); I12.9 Hypertensive chronic kidney disease with stage 1 through stage 4 chronic kidney disease, or unspecified chronic kidney disease; N18.9 Chronic kidney disease, unspecified; K50.90 Crohn's disease, unspecified, without complications; Z93.3 Colostomy status
CPT/HCPCS: 36415; 80048; 85014; 85018; 85610; 99283

== ENCOUNTER 2020-06-08 17:49 | Emergency (ER) | payer MEDICARE, MEDICAID ==
[~2020-06-08] VITALS: Ht 167.6 cm; Wt 67.0 kg
[2020-06-08 21:14] LABS: BASO % 1 % (0-3); EOS # 0.2 x10^3/uL (0.0-0.7); EOS % 4 % (0-3); HEMATOCRIT 23.4 % (39.0-53.0); HEMOGLOBIN 7.3 g/dL (13.0-17.5); LYMPH % 16 % (24-48); MEAN CORPUSCULAR HEMOGLOBIN 27 pg (25-35); MEAN CORPUSCULAR HGB CONC 31 g/dL (31-37); MEAN CORPUSCULAR VOLUME 86 fL (79-100); MONO # 0.8 x10^3/uL (0.0-1.1); MONO % 14 % (0-9); NEUT # 3.9 x10^3uL (1.8-7.7); NEUT % 66 % (31-73); PLATELET COUNT 307 x10^3/uL (140-400); RED BLOOD COUNT 2.72 x10^6/uL (4.30-5.70); RED CELL DISTRIBUTION WIDTH 17.2 % (11.5-14.5)
[2020-06-08 21:20] LABS: CALCIUM 8.9 mg/dL (8.5-10.1); CREATININE 3.1 mg/dL (0.7-1.3); GFR 25.6; POTASSIUM 4.8 mmol/L (3.5-5.1)
[2020-06-08 21:27] LABS: ALBUMIN 2.7 g/dL (3.4-5.0); ALBUMIN/GLOBULIN RATIO 0.4 (1.0-1.7); TOTAL BILIRUBIN 0.3 mg/dL (0.2-1.0); TOTAL PROTEIN 8.9 g/dL (6.4-8.2)
--- NOTE | 2020-06-08 21:47 | PHYS DOC ---
Past History Past Medical History: Hypertension Additional Past Medical Histor: osteoprosis, crohns disease (ROBIN MARLEY APRN) Past Surgical History: Other Additional Past Surgical Histo: COLOSTOMY LEFT (ROBIN MARLEY APRN) Alcohol Use: None Drug Use: Marijuana (ROBIN MARLEY APRN) General Adult EDM: Chief Complaint: ABNORMAL LABS HPI: HPI: Patient is a 54-year-old male who presents with low hemoglobin. Patient states that he was at his GI doctor having routine labs drawn, and they told him he needed to come to the emergency room to get blood. Patient's hemoglobin was 4.6. Patient denies shortness of breath, pain, dizziness. Patient states that he has had to have blood transfusions in the past and has a history of low hemoglobin. Patient states "they cannot figure out why the hemoglobin keeps going low". Patient states that he has a history of Crohn's, hypertension, colonoscopy, DVT, TPN. Patient states that he is on blood thinners from a DVT from 3 years ago. And takes TPN nightly because he cannot absorb nutrition. Patient denies any blood in his stool. (ROBIN MARLEY APRN) Review of Systems: Review of Systems: Constitutional: Denies fever or chills Eyes: Denies change in visual acuity HENT: Denies nasal congestion or sore throat Respiratory: Denies cough or shortness of breath Cardiovascular: Denies chest pain or edema GI: Denies abdominal pain, nausea, vomiting, bloody stools or diarrhea : Denies dysuria Musculoskeletal: Denies back pain or joint pain Integument: Denies rash Neurologic: Denies headache, focal weakness or sensory changes Endocrine: Denies polyuria or polydipsia Lymphatic: Denies swollen glands Psychiatric: Denies depression or anxiety (ROBIN MARLEY APRN) Allergies: Allergies: Allergies Coded Allergies Type Severity Reaction Last Updated Verified No Known Drug Allergies 11/25/16 No (ROBIN MARLEY APRN) Physical Exam: PE: Constitutional: Well developed, well nourished, no acute distress, non-toxic appearance. [] HENT: Normocephalic, atraumatic, bilateral external ears normal, oropharynx moist, no oral exudates, nose normal. [] Eyes: PERRLA, EOMI, conjunctiva normal, no discharge. [] Neck: Normal range of motion, no tenderness, supple, no stridor. [] Cardiovascular:Heart rate regular rhythm, no murmur [] Lungs & Thorax: Bilateral breath sounds clear to auscultation [] Abdomen: Bowel sounds normal, soft, no tenderness, no masses, no pulsatile masses. [] Skin: Warm, dry, no erythema, no rash. [] Back: No tenderness, no CVA tenderness. [] Extremities: No tenderness, no cyanosis, no clubbing, ROM intact, no edema. [] Neurologic: Alert and oriented X 3, normal motor function, normal sensory function, no focal deficits noted. [] Psychologic: Affect normal, judgement normal, mood normal. [] (ROBIN MARLEY APRN) Current Patient Data: Labs: Laboratory Tests Test 06/08/20 20:52 White Blood Count 6.0 x10^3/uL (4.0-11.0) Red Blood Count 2.72 x10^6/uL (4.30-5.70) L Hemoglobin 7.3 g/dL (13.0-17.5) L Hematocrit 23.4 % (39.0-53.0) L Mean Corpuscular Volume 86 fL (79-100) Mean Corpuscular Hemoglobin 27 pg (25-35) Mean Corpuscular Hemoglobin Concent 31 g/dL (31-37) Red Cell Distribution Width 17.2 % (11.5-14.5) H Platelet Count 307 x10^3/uL (140-400) Neutrophils (%) (Auto) 66 % (31-73) Lymphocytes (%) (Auto) 16 % (24-48) L Monocytes (%) (Auto) 14 % (0-9) H Eosinophils (%) (Auto) 4 % (0-3) H Basophils (%) (Auto) 1 % (0-3) Neutrophils # (Auto) 3.9 x10^3uL (1.8-7.7) Lymphocytes # (Auto) 1.0 x10^3/uL (1.0-4.8) Monocytes # (Auto) 0.8 x10^3/uL (0.0-1.1) Eosinophils # (Auto) 0.2 x10^3/uL (0.0-0.7) Basophils # (Auto) 0.0 x10^3/uL (0.0-0.2) Sodium Level 140 mmol/L (136-145) Potassium Level 4.8 mmol/L (3.5-5.1) Chloride Level 103 mmol/L (98-107) Carbon Dioxide Level 24 mmol/L (21-32) Anion Gap 13 (6-14) Blood Urea Nitrogen 45 mg/dL (8-26) H Creatinine 3.1 mg/dL (0.7-1.3) H Estimated GFR (Cockcroft-Gault) 25.6 BUN/Creatinine Ratio 15 (6-20) Glucose Level 81 mg/dL (70-99) Calcium Level 8.9 mg/dL (8.5-10.1) Total Bilirubin 0.3 mg/dL (0.2-1.0) Aspartate Amino Transferase (AST) 13 U/L (15-37) L Alanine Aminotransferase (ALT) 20 U/L (16-63) Alkaline Phosphatase 104 U/L (46-116) Total Protein 8.9 g/dL (6.4-8.2) H Albumin 2.7 g/dL (3.4-5.0) L Albumin/Globulin Ratio 0.4 (1.0-1.7) L Vital Signs: Vital Signs Date Time Temp Pulse Resp B/P (MAP) Pulse Ox O2 Delivery O2 Flow Rate FiO2 06/08/20 21:03 98.1 89 19 136/91 (106) 99 Room Air (ROBIN MARLEY APRN) EKG: EKG: [] (ROBIN MARLEY APRN) Radiology/Procedures: Radiology/Procedures: [] (ROBIN MARLEY APRN) Heart Score: Risk Factors: Risk Factors: DM, Current or recent (<one month) smoker, HTN, HLP, family history of CAD, obesity. Risk Scores: Score 0 - 3: 2.5% MACE over next 6 weeks - Discharge Home Score 4 - 6: 20.3% MACE over next 6 weeks - Admit for Clinical Observation Score 7 - 10: 72.7% MACE over next 6 weeks - Early Invasive Strategies (ROBIN MARLEY APRN) Course & Med Decision Making: Course & Med Decision Making Pertinent Labs and Imaging studies reviewed. (See chart for details) []Patient is a 54-year-old male who presents with low hemoglobin. Patient states that he was at his GI doctor having routine labs drawn, and they told him he needed to come to the emergency room to get blood. Patient's hemoglobin was 4.6. Patient denies shortness of breath, pain, dizziness. Patient states that he has had to have blood transfusions in the past and has a history of low hemoglobin. Patient states "they cannot figure out why the hemoglobin keeps going low". Patient states that he has a history of Crohn's, hypertension, colonoscopy, DVT, TPN. Patient states that he is on blood thinners from a DVT from 3 years ago. And takes TPN nightly because he cannot absorb nutrition. Patient denies any blood in his stool. Transfer of patient care to Dr. Prince. (ROBIN MARLEY APRN) Course & Med Decision Making Patient is a 54-year-old male with a significant past medical history of Crohn's, and anemia with history of need for blood transfusions who presents at the request of his GI doc for low hemoglobin. Here in the emergency department his hemoglobin was 7.3 and had a significant elevation in creatinine giving him an CRISTIAN. Patient also on warfarin but stated he had not taken it in about a day because he was told to stop. Discussed all findings with patient and recommended admission to the hospital for continued evaluation and treatment of his anemia and acute kidney injury and probable need for blood transfusion. Patient stated that he is not going to stay in the hospital and would follow-up with his primary care physician/GI doctor first thing in the morning. Both myself and the ED nurse present in the room and explained to patient that he is really sick, with a hemoglobin that is dropping and not sure of the source and has some kidney damage. Advised that this is especially dangerous being on the blood thinner warfarin. Advised that he could continue to become more anemic begin to have chest pain, headaches, lightheadedness, falls with injury and bleeding in his brain as well as cardiac arrest. Also stated given his kidney function, continued evaluation treatment is warranted to ensure that his kidneys are not further damaged as this could cause significant illness, morbidity and mortality as well. Patient stated that he had someone else's car, did not want to stay in the hospital and would call his primary care physician in the morning. Both myself and ED nurse reiterated that he could get really sick really fast and this could lead to significant illness, disability and . Patient stated that he understood and wanted his discharge paperwork. (NAOMI PRINCE MD) Dragon Disclaimer: Dragon Disclaimer: This electronic medical record was generated, in whole or in part, using a voice recognition dictation system. (ROBIN MARLEY APRN) Departure Departure: Impression: Primary Impression: Anemia Additional Impressions: CRISTIAN (acute kidney injury) Elevated BUN Disposition: 07 AMA/ELOPED/LWBS Condition: LEFT WITHOUT BEING SEEN Referrals: LASHONDA Tracy,ALONDRA DE LEÓN (PCP) ROBIN MARLEY APRN Jun 08, 2020 21:47 NAOMI PRINCE MD Jun 08, 2020 23:32
[2020-06-08 23:21] VITALS: BP 161/95
--- NOTE | 2020-06-09 00:30 | EKG ---
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
== END 2020-06-08 23:31 | disposition left against medical advice (07) ==
LOC: ER 17:49
DX: D64.9 Anemia, unspecified (principal); N17.9 Acute kidney failure, unspecified; R79.89 Other specified abnormal findings of blood chemistry; I10 Essential (primary) hypertension; F12.90 Cannabis use, unspecified, uncomplicated; Z98.890 Other specified postprocedural states; Z90.89 Acquired absence of other organs
CPT/HCPCS: 36415; 80053; 85025; 86850; 86900; 86901; 93005; 99284

== ENCOUNTER → 2020-12-21 | Outpatient (CLI) | payer MEDICARE, MEDICAID | LOC: LAB 16:54 | PROVIDERS: ATTEND Internal Medicine | DX: I82.501 Chronic embolism and thrombosis of unspecified deep veins of right lower extremity (principal); I26.99 Other pulmonary embolism without acute cor pulmonale | CPT/HCPCS: 36415; 85610 ==

== ENCOUNTER 2021-04-11 01:51 | Emergency (ER) | payer MEDICARE, MEDICAID ==
[~2021-04-11] VITALS: Ht 167.6 cm; Wt 67.0 kg
[2021-04-11 02:00] VITALS: BP 160/87
--- NOTE | 2021-04-11 02:01 | PHYS DOC ---
Past History Past Medical History: Hypertension Additional Past Medical Histor: osteoprosis, crohns disease Past Surgical History: Other Additional Past Surgical Histo: COLOSTOMY LEFT Alcohol Use: None Drug Use: Marijuana Adult General HPI HPI Patient is a 55-year-old male who presents with a chief complaint of bilateral neck and shoulder tightness that he woke up with. States he gets this occasionally and usually takes a muscle relaxer from one of his family members when this happens but did not have any tonight. Denies any recent travels, traumas, illnesses, fevers, chest pain, shortness of breath, abdominal pain, nausea, vomiting. Denies any numbness/weakness/tingling. States that he took a pain pill, that he cannot remember the name of yesterday morning which helped. Review of Systems Review of Systems Review of systems otherwise unremarkable except noted in HPI Allergies Allergies Allergies Coded Allergies Type Severity Reaction Last Updated Verified No Known Drug Allergies 11/25/16 No Physical Exam Physical Exam Constitutional: Well developed, well nourished, no acute distress, non-toxic appearance. [] HENT: Normocephalic, atraumatic, bilateral external ears normal, oropharynx moist, no oral exudates, nose normal. [] Eyes: conjunctiva normal, no discharge. [] Neck: Normal range of motion, no tenderness, supple, no stridor. [] Cardiovascular:Heart rate regular rhythm, no murmur [] Lungs & Thorax: Bilateral breath sounds clear to auscultation [] Abdomen: Bowel sounds normal, soft, no tenderness, no masses, no pulsatile masses. [] Skin: Warm, dry, no erythema, no rash. [] Back: No tenderness, no CVA tenderness. [] Extremities: No tenderness, no cyanosis, no clubbing, ROM intact, no edema. [] Neurologic: Alert and oriented X 3, normal motor function, normal sensory function, able to sit, stand and walk without issue, no focal deficits noted. [] Psychologic: Affect normal, judgement normal, mood normal. [] EKG EKG [] Radiology/Procedures Radiology/Procedures [] Heart Score C/O Chest Pain: No Risk Factors: Risk Factors: DM, Current or recent (<one month) smoker, HTN, HLP, family history of CAD, obesity. Risk Scores: Risk Factors: DM, Current or recent (<one month) smoker, HTN, HLP, family history of CAD, obesity. Course & Med Decision Making Course & Med Decision Making Patient is a 55-year-old male who presents with neck and shoulder pain Vital signs not concerning. Physical exam noted above. Patient given starter packs of Tylenol 3 and Flexeril for home Discussed symptom management at home. Advised on stretching, ice and heat as well. Advised to keep his primary care appointment tomorrow to update on ED visit. Gave return precautions to the ED. Patient grateful, verbalized understanding and agreed with plan of discharge. [] Dragon Disclaimer Dragon Disclaimer This electronic medical record was generated, in whole or in part, using a voice recognition dictation system. Departure Departure: Impression: Primary Impression: Muscle spasm Disposition: HOME / SELF CARE / HOMELESS Condition: GOOD Referrals: LASHONDA Tracy,ALONDRA DE LEÓN (PCP) Patient Instructions: Muscle Cramps, RICE - Routine Care for Injuries Additional Instructions: Thanks for coming into the emergency department tonight and allowing us to take care of you. Please read all the attached information carefully to go back over things we discussed. Please take your prescription pain medicine as prescribed and only when needed. You can also add ibuprofen if you are not allergic and can tolerate as this will also provide some relief. You can also use ice and heat. Please keep your upcoming appointment tomorrow with your primary care physician. Please come back with new or concerning symptoms as discussed. NAOMI PRINCE MD Apr 11, 2021 02:01
[2021-04-11] MEDS ORDERED: CYCLOBENZAPRINE 10MG 4TABLET STARTPACK PO ONE (02:30)
[2021-04-11] MEDS ORDERED: ACETAMINOPHEN/CODEINE 300/30MG 4TABLET STARTPACK. PO ONE (02:30)
== END 2021-04-11 02:30 | disposition home or self-care (01) ==
LOC: ER 01:51
DX: M62.838 Other muscle spasm (principal); M54.2 Cervicalgia; M25.511 Pain in right shoulder; M25.512 Pain in left shoulder; I10 Essential (primary) hypertension
CPT/HCPCS: 99283